=== PATIENT | female | born 1940 | race African-American/Black ===

== ENCOUNTER 2016-10-15 20:50 | Inpatient (IN) ==
[2016-10-15] MEDS ORDERED: SODIUM CHLORIDE 0.9% 500 ML IV STA (20:58)
[2016-10-15] MEDS ORDERED: ALBUTEROL/IPRATROPIUM 3 ML NEB RESP TX STA (20:58)
[2016-10-15] MEDS: ALBUTEROL 2.5 MG/3 ML NEB RESP TX SCH (21:15)
[2016-10-15 21:35] LABS: ABG Base Excess -16.8 MMOL/L (-2.5-2.5); ABG HCO3 11.9 MMOL/L (20-26); ABG Oxygen Saturation 83.2 % (95-100); ABG PCO2 45.3 MM HG (35-48); ABG PO2 66.3 MM HG (80-95); ABG TCO2 12.6 MMOL/L (23-27)
[2016-10-15 21:40] LABS: ABG PH 7.085 (7.35-7.45)
[2016-10-15 21:58] LABS: Basophils % 0.2 % (0.0-0.8); Eosinophils # 0.1 10*3/uL (0.0-0.87); Eosinophils % 1.2 % (0.00-10.9); Lymphocytes # 1.8 10*3/uL (1.4-4.0); Lymphocytes % 35.4 % (21.3-54.2); Mean Corpuscular HGB Conc 29.8 GM/DL (32-36); Mean Corpuscular Hemoglobin 23 PG (27-34); Mean Corpuscular Volume 75.6 FL (87-102); Mean Platelet Volume 13.8 FL (9.6-12.0); Monocytes # 0.3 10*3/uL (0.11-0.8); Monocytes % 6.5 % (1.7-12.7); Neutrophils % 56.7 % (38.7-73.9); Platelet Count 281 T/CUMM (130-400); Red Blood Count 5.69 MC/CUMM (3.8-5.5); Red Cell Distribution Width 14.7 % (9.3-17.3); White Blood Count 5.2 T/CUMM (4-12)
[2016-10-15 21:59] LABS: Hemoglobin 12.8 GM/DL (12.0-16.0)
[2016-10-15 22:06] LABS: INR 1.1; PT Patient Result 11.8 SECS
[2016-10-15] MEDS ORDERED: PIPERACILLIN/TAZOBACTAM 3,375 MG in SODIUM CHLORIDE 0.9% 100 ML IV STA (22:16)
[2016-10-15 22:21] LABS: Albumin 2.9 G/DL (3.4-5.0); Bilirubin,Total 0.5 MG/DL (0.2-1.0); Magnesium 2.9 MG/DL (1.8-2.4); Osmolality,Calculated 332.2 MOS/KG (273-304); Potassium 4.4 MMOL/L (3.5-5.1); Total Protein 7.3 G/DL (6.4-8.3)
[2016-10-15 22:23] LABS: Troponin I Only 0.508 NG/ML (0.00-0.045)
[2016-10-15 22:29] LABS: Burr Cells Few; Microcytosis Slight; Ovalocytes Few; Platelet Estimate Normal; Poikilocytosis Slight
[2016-10-15] MEDS ORDERED: MIDAZOLAM 10 MG/2 ML VIAL IV STA (22:36)
[2016-10-15] MEDS ORDERED: fentaNYL 100 MCG/2 ML VIAL IV STA (22:36)
[2016-10-15] MEDS ORDERED: MIDAZOLAM 10 MG/2 ML VIAL ONE (22:38)
[2016-10-15] MEDS ORDERED: fentaNYL 100 MCG/2 ML VIAL ONE (22:38)
[2016-10-15 22:40] LABS: Apearance,Urine CLOUDY (Clear); Bacteria,Urine Many /HPF (Few); Bilirubin,Urine Negative (Negative); Blood, Urine Moderate mg/dL (Negative); Glucose,Urine (UA) Negative (Negative); Ketones,Urine Negative (Negative); Nitrite,Urine Negative (Negative); Protein,Urine 100 MG/DL; RBC,Urine 1075 /HPF (0-4); Urine Color Amber (Yellow); Urine Specific Gravity 1.013 (1.001-1.035); Urine Urobilinogen < 2.0 EU/DL (0.2-1.0); WBC,Urine 5300 /HPF (0-6)
[2016-10-15] MEDS ORDERED: PIPERACILLIN/TAZOBACTAM 3,375 MG VIAL IV ONE (23:03)
[2016-10-15] MEDS ORDERED: MIDAZOLAM 2 MG/2 ML VIAL IV STA (23:43)
--- NOTE | 2016-10-15 23:59 | Emergency Department Note ---
ISherry Emily, am scribing for, and in the presence of, Channing Kenny MD 21: 07. IEfraín Kevin Lee, MD, personally performed the services described in this documentation, ascribed by Kath Powell in my presence, and it is both accurate and complete . Arrival - Arrival Chief Complaint: Upper Respiratory Stated Complaint: respiratory Mode of Arrival: Stretcher Limitations: Altered Mental Status (demented; non verbal), Physical Limitation Source: EMS - History of Present Illness HPI Narrative: Pt is a 76 y/o female who was brought to ED by EMS from [facility] for further evaluation of mild respiratory on a nonbreather that started earlier today. Pt is non verbal and does not follow commands. PMHx of Alzheimer's, GERD, spinal stenosis, IDDM. EMS states [facility] suctioned out about 200 cc, pt was vomiting around 430pm and given zofran. EMS states her O2 sat has improved immensely since arrival at [facility]. Last documentation found on pt was from 2012 for Full Code provided by family. Onset (ago): hour(s) Consistency: constant Severity: moderate, severe Severity scale (1-10): 8 Quality: fullness Allergies/Adverse Reactions: Allergies Allergy/AdvReac Type Severity Reaction Status Date / Time No Known Allergies Allergy Verified 10/15/16 20:59 Review of System - Review of System ROS unobtainable: due to mental status, due to dementia Medical,Surgical,& Family Hx - Medical History Cardio: History of: Hypertension Neurology: History of: Dementia Endocrine: History of: Diabetes Mellitus (IDDM) - Social History Smoking Status: Never smoker Marital Status: Single Lives With:: [facility] Functional capacity: bed bound Exam Vital Signs: Vital Signs Temperature 98.2 F 10/15/16 20:53 Pulse Rate 143 H 10/15/16 21:35 Respiratory Rate 32 H 10/15/16 21:35 O2 Sat by Pulse Oximetry 88 L 10/15/16 21:35 - General General appearance: in distress (secondary to respiratory distress, mildly) - Head Head exam: Present: atraumatic, normocephalic - Chest Chest inspection: Present: symmetric chest wall rise - Respiratory Respiratory exam: Present: respiratory distress (mild), rhonchi, other ( tachypneic). Absent: normal lung sounds bilaterally (coarse breath sounds) - Cardiovascular Cardiovascular exam: Present: tachycardia, normal heart sounds - Extremities Exam Extremities exam: Absent: pedal edema - Neurological Exam Neurological exam: Present: CN II-XII intact, other (non verbal and does not follow commands). Absent: alert, oriented X3 - Psychiatric Psychiatric exam: Present: flat affect - Skin Skin exam: Present: warm, dry Course Course Narrative: pt not maintaining sats on 15L non rebreather no help with neb treatments. Discussed with family who all wanted everything possible done including place on vent. Decision made to intubate for respiratory distress and failure. Pt did have some post intubation hypotension placed central line as pt had no peripheal access. discussed with hospitalist and findings with family. Procedures - Central Line Placement Right Femoral Time Out Performed: Yes Patient Placed on Monitor/Pulse Ox: Yes Prep: mask, gloves Central Line Prep: Chlorhexidine scrub Central Line Lumen Inserted: triple Post Procedure: sutured in place, good blood return, all ports aspirated, flushed, capped, sterile dressing applied Patient Tolerated Procedure: well, no complications Complications: none - Intubation Time out performed: Yes sedative: Etomidate paralytic: Succinylcholine Laryngoscope: Yandel ET Tube Size: 8 ET Tube Uncuffed: Yes Tube Secured Depth (cm): 22 (cm) Tube Secured Location: other (gums) Tube Placement Confirmation: visualized tube passing through cords, equal breath sounds bilaterally, no breath sounds over epigastrium, confirmation by capnometry, confirmation detector color change Patient Tolerated Procedure: well, no complications Intubation Complications: none Results - Labs CBC & BMP: 10/15/16 21:43 10/15/16 21:43 Lab Results: I have reviewed the patients labs Labs: Laboratory Tests 10/15/16 21:30 ABG pH 7.085 L* ABG pCO2 45.3 ABG pO2 66.3 L ABG HCO3 11.9 L ABG Total CO2 12.6 L ABG O2 Saturation 83.2 L ABG Base Excess -16.8 L Laboratory Tests 10/15/16 21:43 WBC 5.2 RBC 5.69 H Hgb 12.8 MCV 75.6 L MCH 23 L MCHC 29.8 L Plt Count 281 MPV 13.8 H Laboratory Tests 10/15/16 10/15/16 21:43 21:43 INR 1.1 PT Patient/Control Mix 11.8 Sodium 156 H Potassium 4.4 Chloride 119 H Carbon Dioxide 15 L Anion Gap 26.4 H BUN 48 H Creatinine 3.60 H GFR Calculation 13 BUN/Creatinine Ratio 13.00 Glucose 292 H Calculated Osmolality 332.2 H Calcium 9.0 Magnesium 2.9 H Total Bilirubin 0.50 AST 90 H ALT 103 H Alkaline Phosphatase 81 Troponin I 0.508 H Total Protein 7.3 Albumin 2.9 L Globulin 4.4 H Albumin/Globulin Ratio 0.6 L Laboratory Tests 10/15/16 21:43 Platelet Estimate Normal Poikilocytosis Slight Microcytosis Slight Ovalocytes Few Dalton Cells Few Laboratory Tests 10/15/16 21:43 B-Natriuretic Peptide 191 H Laboratory Tests 10/15/16 22:18 Urine Color Betty Urine Appearance Cloudy Urine pH 5.0 Ur Specific Vesper 1.013 Urine Protein 100 Urine Blood Moderate Urine Urobilinogen < 2.0 H Urine Leukocytes Moderate H Urine RBC 1075 Urine WBC 5300 Urine WBC Clumps Many Urine Bacteria Many Urine Yeast (Budding) Moderate - Diagnostic Findings Procedure: Chest x-ray: report reviewed by me (bilateral patchy infiltrates; ET tube in good position) Critical Care Time Critical Care Time: Yes Total Critical Care Time: 28 (minutes; consults with family about BP management) Disposition Clinical Impression: Acute renal failure, Aspiration pneumonitis, Respiratory failure, Hypernatremia , Hypotension, Alzheimer's dementia Case discussed with: patient's family Disposition: Still a Patient Condition: Critical
--- NOTE | 2016-10-16 00:27 | Hospitalist History & Physical ---
Assessment and Plan (1) Acute on chronic renal failure Status: Acute Assessment and plan: - IVF - will monitor Current Visit: Yes (2) Aspiration pneumonia Status: Acute Assessment and plan: - intubated - IV Vancomy and Zosyn - Blood cultures - PRN nebulizer treatments - Consult pulmonology - Will monitor Current Visit: Yes (3) Hypernatremia Status: Acute Assessment and plan: - IVF - will monitor Current Visit: Yes (4) Respiratory failure Status: Acute Assessment and plan: - acute hypoxic respiratory failure - intubated - Pulmonary consulted - will monitor Current Visit: Yes (5) UTI (urinary tract infection) Status: Acute Assessment and plan: - IV Zosyn - Urine culture pending - will monitor Current Visit: Yes (6) Vomiting Status: Acute Assessment and plan: - may be due to UTI - No additional imaging warranted at this time - will monitor Current Visit: Yes History of Present Illness Chief complaint: Vomiting respiratory distress History of present illness: Ms. Wakefield is a 76 year old female care home resident ([facility]) with a history of dementia, hypertension, osteoarthritis, and diabetes that presented to the ER with respiratory distress. Per daughter, she was called by the care home stated the patient's vomiting all day today. She reports that she was told that her mother was given medications for nausea. Later on this evening patient was contacted again and 7 mother was taken to the ER due to respiratory distress and fever. It was felt that she had possibly aspirated. In the ER, patient continued to be in respiratory distress and required intubation. Patient did have a decrease in her blood pressure after intubation. Patient received IV fluid resuscitation. Patient is a full code per family. No other information provided. ER workup showed bilateral infiltrates on chest x-ray (official read pending), hyponatremia, and acute on chronic renal failure. Patient was admitted to hospitalist service for further management. Allergies Allergy/AdvReac Type Severity Reaction Status Date / Time No Known Allergies Allergy Verified 10/15/16 20:59 Medical,Surgical,& Family Hx - Medical History Cardio: History of: Hypertension Neurology: History of: Dementia Endocrine: History of: Diabetes Mellitus (IDDM) - Surgical History Abdominal Surgeries: Surgical HX of: Cholecystectomy Reproductive Surgeries: Surgical HX of;: Hysterectomy - Social History Smoking Status: Never smoker Frequency of Alcohol Use: None Type of Drug Use: None ROS unobtainable: due to endotracheal tube Exam - Constitutional Vitals: Period Temp Pulse Resp BP Sys/Orozco Pulse Ox Last 24 Hr 98.2 F 140-143 31-32 88-88 General appearance: normal weight - Head Head exam: Present: normal inspection, other (eyes appear sunken) - ENT ENT exam: Present: other (dry mucous membranes) - Respiratory Respiratory exam: Present: decreased breath sounds (in bilateral bases but worse on isabelle right), other (coarse breath sounds throughout ) - Cardiovascular Cardiovascular exam: Present: tachycardia - GI/Abdominal GI/Abdominal exam: Present: normal bowel sounds, soft. Absent: distended, hernia - Extremities Exam Extremities exam: Present: edema, other (peripheral pulses palpable but decraesed) - Neurological Exam Neurological exam: Present: other (sedated) - Psychiatric Psychiatric exam: Present: other (sedated) - Skin Skin exam: Present: normal color, dry Results - Labs CBC & BMP: 10/15/16 21:43 10/15/16 21:43 - EKG EKG results: sinus rhythm (sinus tachycardia) - Diagnostic Findings Procedure: Chest x-ray: pending (bilateral infiltrates)
[2016-10-16] MEDS ORDERED: ALBUTEROL 2.5 MG/3 ML NEB RESP TX PRN (01:32)
[2016-10-16] MEDS ORDERED: GLUCAGON 1 MG VIAL IM PRN (01:32)
[2016-10-16] MEDS ORDERED: ONDANSETRON 4 MG/2 ML VIAL IV PRN (01:32)
[2016-10-16] MEDS ORDERED: DEXTROSE 50% 25 GM/50 ML SYRINGE IV PRN (01:32)
[2016-10-16] MEDS ORDERED: LEVALBUTEROL 1.25 MG/3 ML NEB RESP TX PRN (01:32)
[2016-10-16] MEDS ORDERED: SODIUM CHLORIDE 0.9% 1,000 ML IV ONE ×2 (01:58→14:05)
[2016-10-16] MEDS: SODIUM CHLORIDE 0.45% 1,000 ML IV SCH ×3 (02:06→21:55)
[2016-10-16] MEDS: PANTOPRAZOLE 40 MG VIAL IV SCH (02:14)
[2016-10-16] MEDS: PROPOFOL 1,000 MG/100 ML BOTTLE IV SCH (03:05)
[2016-10-16] MEDS: MIDAZOLAM 100 MG in SODIUM CHLORIDE 0.9% 80 ML IV SCH (03:06)
[2016-10-16 03:08] LABS: ABG Base Excess -14.5 MMOL/L (-2.5-2.5); ABG HCO3 12.1 MMOL/L (20-26); ABG Oxygen Saturation 98.5 % (95-100); ABG PCO2 30.9 MM HG (35-48); ABG PO2 173.8 MM HG (80-95); Allen Test Positive; Pt O2 Delivery Device Ventilator
[2016-10-16] MEDS: MORPHINE 2 MG/1 ML SYRINGE IV PRN (03:18)
[2016-10-16 03:44] LABS: ABG HCO3 12.1 MMOL/L (20-26); ABG Oxygen Saturation 98.6 % (95-100); ABG PCO2 29.4 MM HG (35-48); ABG PH 7.233 (7.35-7.45); ABG PO2 164.6 MM HG (80-95); Allen Test Positive; Pt O2 Delivery Device Ventilator
[2016-10-16] MEDS ORDERED: SUCCINYLCHOLINE 200 MG/10 ML VIAL ONE (03:59)
[2016-10-16] MEDS ORDERED: ETOMIDATE 20 MG/10 ML VIAL IV ONE ×2 (03:59→04:06)
[2016-10-16] MEDS ORDERED: VANCOMYCIN INJ 1,000 MG in SODIUM CHLORIDE 0.9% 250 ML IV ONE (04:00)
[2016-10-16] MEDS ORDERED: VANCOMYCIN INJ 1,000 MG in SODIUM CHLORIDE 0.9% 250 ML IV PRN (04:00)
[2016-10-16] MEDS ORDERED: SUCCINYLCHOLINE 200 MG/10 ML VIAL IV ONE (04:08)
[2016-10-16 05:07] LABS: Basophils % 0.2 % (0.0-0.8); Eosinophils % 0.2 % (0.00-10.9); Hematocrit 34.8 VOL% (35.7-47.0); Hemoglobin 10.4 GM/DL (12.0-16.0); Immature Granulocytes % 0.5 %; Immature Granulocytes Absolute 0.02 #; Lymphocytes # 0.7 10*3/uL (1.4-4.0); Lymphocytes % 17.2 % (21.3-54.2); Mean Corpuscular HGB Conc 29.9 GM/DL (32-36); Mean Corpuscular Hemoglobin 23 PG (27-34); Mean Corpuscular Volume 75.3 FL (87-102); Monocytes # 0.4 10*3/uL (0.11-0.8); Monocytes % 8.5 % (1.7-12.7); NRBC # 0.02 10*3/uL; Neutrophils % 73.4 % (38.7-73.9); Platelet Count 198 T/CUMM (130-400); Red Blood Count 4.62 MC/CUMM (3.8-5.5); Red Cell Distribution Width 14.7 % (9.3-17.3); White Blood Count 4.1 T/CUMM (4-12)
[2016-10-16 05:40] LABS: Hypochromasia 1+
[2016-10-16 05:41] LABS: Microcytosis Slight; Ovalocytes Slight
[2016-10-16 05:42] LABS: Platelet Estimate Adequate
[2016-10-16 05:44] LABS: Albumin 2.2 G/DL (3.4-5.0); Bilirubin,Total 0.5 MG/DL (0.2-1.0); Calcium 7.6 MG/DL (8.5-10.1); Potassium 3.7 MMOL/L (3.5-5.1); Total Protein 5.3 G/DL (6.4-8.3)
[2016-10-16] MEDS: INSULIN LISPRO 100 UNIT/ML SUBCUT SCH ×3 (06:21→19:31)
--- NOTE | 2016-10-16 07:26 | XRay Report ---
Single view the chest. Indication: Shortness of breath. Comparison: None. The heart is normal in size. The lung volumes are small. There are bilateral basilar, predominantly alveolar infiltrates. No pneumothorax or pleural effusion. Degenerative changes are noted within the spinal column and left shoulder. Impression: Bilateral basilar infiltrates. PROCEDURE INTERPRETED AT [facility] DEPARTMENT OF RADIOLOGY Final Report Signed by: Dr. Zeenat Thomas
--- NOTE | 2016-10-16 07:26 | Pulmonology Consult Note ---
Assessment and Plan (1) Respiratory failure Status: Acute Assessment and plan: The patient is on the ventilator for respiratory failure and apparently has been vomiting and aspirating. She does have bilateral pneumonia. Current Visit: Yes (2) Alzheimer's dementia Status: Acute Assessment and plan: The patient is in a [facility] with significant dementia. Current Visit: Yes (3) Acute on chronic renal failure Status: Acute Assessment and plan: The patient's creatinine is up to 3.8. Current Visit: Yes (4) Aspiration pneumonia Status: Acute Assessment and plan: Patient looks like she has bilateral basilar pneumonia. Current Visit: Yes (5) UTI (urinary tract infection) Status: Acute Assessment and plan: Patient does have pyuria. Current Visit: Yes (6) Vomiting Status: Acute Assessment and plan: Patient presented with vomiting but is stable at present. She could be dehydrated somewhat. Current Visit: Yes History of Present Illness Chief complaint: Ventilator management History of present illness: Ms. Wakefield is a 76 year old black female that is a resident of a [facility] with significant dementia. She also has hypertension, diabetes, and degenerative arthritis. Apparently the patient had been vomiting all day and she was given medication for nausea. Later she developed respiratory distress and fever and came into the emergency room with bilateral pneumonia. She continued to have distress and had to be intubated. The patient is now on the ventilator in the ICU. She has adequate oxygenation but does have a tachycardia. She has been given fluids and antibiotics. She is awake but does not follow commands. She apparently has significant dementia. She also has chronic renal insufficiency. Allergies Allergy/AdvReac Type Severity Reaction Status Date / Time No Known Allergies Allergy Verified 10/15/16 20:59 ROS unobtainable: due to endotracheal tube (She is unable to give any history at present.) Exam (Pulmonay) H&P - Constitutional Vitals: Period Temp Pulse Resp BP Sys/Orozco Pulse Ox Last 24 Hr 97.2 F-98.2 F 125-143 12-32 69-131/47-91 88-100 General appearance: normal weight, no acute distress (The patient is reasonably comfortable on the ventilator.) - Head Head exam: Present: normal inspection, normocephalic - Eye Eye exam: Present: EOMI. Absent: scleral icterus Pupils: Present: BETHANIE - ENT ENT exam: Present: other (ET tube is in good position.) - Neck Neck exam: Present: normal inspection. Absent: lymphadenopathy, thyromegaly - Respiratory Respiratory exam: Present: rales, rhonchi (The patient has fairly good breath sounds bilaterally). Absent: accessory muscle use - Cardiovascular Cardiovascular exam: Present: regular rate and rhythm, tachycardia. Absent: gallop, systolic murmur - GI/Abdominal GI/Abdominal exam: Present: normal bowel sounds, soft. Absent: distended, organomegaly, tenderness - Extremities Exam Extremities exam: Present: edema (She has slight edema.). Absent: calf tenderness - Neurological Exam Neurological exam: Present: other (She is not really responding but is awake) - Psychiatric Psychiatric exam: Absent: anxious - Skin Skin exam: Present: warm, dry Medical,Surgical,& Family Hx - Medical History Cardio: History of: Hypertension Neurology: History of: Dementia Endocrine: History of: Diabetes Mellitus (IDDM) Renal: History of: Renal Failure Gastrointestinal: History of: GERD Musculoskeletal: Comment Only: Musculoskeletal Problems (spinal stenosis) - Surgical History Abdominal Surgeries: Surgical HX of: Cholecystectomy Reproductive Surgeries: Surgical HX of;: Hysterectomy - Social History Smoking Status: Never smoker Frequency of Alcohol Use: None Type of Drug Use: None Results - Labs CBC & BMP: 10/16/16 03:47 10/16/16 03:47 Labs: PO2 is 164 with a PCO2 of 29 and a pH of 7.23 - Diagnostic Findings Procedure: Chest x-ray: image reviewed by me, report reviewed by me (Chest x- ray does show bibasilar infiltrates.) Quality Measures - VTE Contraindication to Pharmacological VTE Prophylaxis: High Risk of Bleeding
--- NOTE | 2016-10-16 07:28 | XRay Report ---
Portable chest. Indication: Intubated patient. Comparison: Exam from 45 minutes earlier. The heart is normal in size. Worsening bilateral alveolar infiltrates. An endotracheal tube is in place. Its distal tip is 2 cm above the doug. Surgical clips in the right upper quadrant. Impression: Satisfactory endotracheal tube placement. Worsening bilateral infiltrates. PROCEDURE INTERPRETED AT [facility] DEPARTMENT OF RADIOLOGY Final Report Signed by: Dr. Zeenat Thomas
--- NOTE | 2016-10-16 07:29 | XRay Report ---
Portable chest. Comparison: Exam from several hours earlier. Indication: Shortness of breath. Nasogastric tube has been placed and is in satisfactory position. Stable position of the endotracheal tube. Bilateral lower lobe infiltrates, stable. No pneumothorax. No pleural effusion. Impression: Satisfactory tube placement. Stable infiltrates. PROCEDURE INTERPRETED AT [facility] DEPARTMENT OF RADIOLOGY Final Report Signed by: Dr. Zeenat Thomas
--- NOTE | 2016-10-16 07:51 | EKG Report ---
Stationary ECG Study [facility] ER Test Date: 10/15/2016 8:56:08 PM Pat Name: JOSH HOLMAN Department: Room: 129 Gender: F Interactive Developer: : 1940 Requested by: Channing Caba Order Number: [id number] Reading MD: MELISA NICHOLS Intervals [place] Rate: 152 P: 40 KS: 126 QRS: 48 QRSD: 68 T: 76 QT: 285 QTc: 371 Interpretive Statements SINUS TACHYCARDIA MINIMAL VOLTAGE CRITERIA FOR LVH Electronically Signed On 10-17-16 07:03:15 CDT by MELISA NICHOLS [email or web address]
[2016-10-16] MEDS: PIPERACILLIN/TAZOBACTAM 3,375 MG in SODIUM CHLORIDE 0.9% 100 ML IV SCH (12:02)
[2016-10-16] MEDS: ZINC OXIDE 16% PASTE 57 GM TUBE TOP PRN (12:02)
--- NOTE | 2016-10-16 13:58 | Hospitalist Progress Note ---
Assessment and Plan (1) Respiratory failure Status: Acute Assessment and plan: 1)acute resp failure after aspiration- on Vanc and Zosyn day 2, nebs. Dr Bravo has seen her also. On vent day 2. 2)acute on chronic renal failure- on IVF, creatinine increased to 3.8. UOP ok, monitor. Last check here was 2014, creatinine 1.3 at that time. 3)UTI- culture pending. on antibiotics. 4)significant dementia- at baseline. 5)elevated lactic acid- sent this morning- just saw that it is 10. Give IVF bolus (has had 1500 so far, give anohter 1000 mls) recheck lactic acid in a few hours. BP stable with systolics around 100. tachycardic. Meets criteria for sepsis, appears dehydrated. Current Visit: Yes (2) Alzheimer's dementia Status: Acute Current Visit: Yes (3) Acute on chronic renal failure Status: Acute Current Visit: Yes (4) Aspiration pneumonia Status: Acute Current Visit: Yes (5) UTI (urinary tract infection) Status: Acute Current Visit: Yes Hospitalist: Subjective Interval history: Mrs Wakefield is stable on the vent. She is not sedated and will turn her head to voice, cooperate. Does not try to speak. Exam - Constitutional Vitals: Period Temp Pulse Resp BP Sys/Orozco Pulse Ox Last 24 Hr 97.2 F-99.0 F 125-143 12-32 69-131/45-91 88-100 General appearance: normal weight, no acute distress - Eye Eye exam: Present: EOMI. Absent: scleral icterus - Respiratory Respiratory exam: Present: rales, rhonchi - Cardiovascular Cardiovascular exam: Present: regular rate and rhythm - GI/Abdominal GI/Abdominal exam: Present: normal bowel sounds, soft. Absent: tenderness - Extremities Exam Extremities exam: Absent: edema - Neurological Exam Neurological exam: Present: other (severe dementia at baseline. Nurse spoke to by phone who I hope to talk to when he arrives for visit today.) - Skin Skin exam: Present: warm, dry Results - Labs CBC & BMP: 10/16/16 03:47 10/16/16 03:47 Lab Results: I have reviewed the past 24 hour labs Quality Measures - VTE Contraindication to Pharmacological VTE Prophylaxis: High Risk of Bleeding
[2016-10-16] MEDS ORDERED: SODIUM CHLORIDE 0.9% 1,850 ML IV ONE (14:03)
[2016-10-16] MEDS ORDERED: NOREPINEPHRINE 16 MG in SODIUM CHLORIDE 0.9% 234 ML IV SCH (18:30)
[2016-10-17] MEDS: INSULIN LISPRO 100 UNIT/ML SUBCUT SCH ×4 (00:02→17:28)
[2016-10-17] MEDS: PIPERACILLIN/TAZOBACTAM 3,375 MG in SODIUM CHLORIDE 0.9% 100 ML IV SCH ×2 (01:00→11:38)
[2016-10-17] MEDS: PANTOPRAZOLE 40 MG VIAL IV SCH (01:00)
[2016-10-17] MEDS: PROPOFOL 1,000 MG/100 ML BOTTLE IV SCH (01:00)
[2016-10-17] MEDS: MIDAZOLAM 100 MG in SODIUM CHLORIDE 0.9% 80 ML IV SCH (01:01)
[2016-10-17] MEDS: SODIUM CHLORIDE 0.45% 1,000 ML IV SCH ×2 (08:00→18:54)
--- NOTE | 2016-10-17 08:18 | Pulmonology Progress Note ---
Pulmonary - PN: Subj Interval history: Patient is a 76-year-old black lady with dementia and she is in the intermediate. She came in with what was felt to be aspiration pneumonia. She did develop bilateral infiltrates. She has been reasonably comfortable on the ventilator although she still has a tachycardia. She looks like she is reasonably comfortable at present. Her O2 saturations are adequate and her blood pressure stable. She does open her eyes and look around but does not do much to commands. Exam (Progress Note) - Constitutional Vitals: Period Temp Pulse Resp BP Sys/Orozco Pulse Ox Last 24 Hr 97.2 F-100.9 F 119-144 12-34 84-147/46-84 98-100 Exam: General appearance: normal weight, no acute distress (The patient is reasonably comfortable on the ventilator.) - Head Head exam: Present: normal inspection, normocephalic - Eye Eye exam: Present: EOMI. Absent: scleral icterus Pupils: Present: BETHANIE - ENT ENT exam: Present: other (ET tube is in good position.) - Neck Neck exam: Present: normal inspection. Absent: lymphadenopathy, thyromegaly - Respiratory Respiratory exam: Present: She has fairly good breath sounds bilaterally with minimal rhonchi. - Cardiovascular Cardiovascular exam: Present: regular rate and rhythm, tachycardia. Absent: gallop, systolic murmur - GI/Abdominal GI/Abdominal exam: Present: normal bowel sounds, soft. Absent: distended, organomegaly, tenderness - Extremities Exam Extremities exam: Present: She has no leg pain or tenderness at the present time. - Neurological Exam Neurological exam: Present: other (She is not really responding but is awake) - Psychiatric Psychiatric exam: Absent: anxious - Skin Skin exam: Present: warm, dry Results - Labs CBC & BMP: 10/16/16 03:47 10/16/16 03:47 Assessment and Plan (1) Respiratory failure Status: Acute Assessment and plan: The patient is on the ventilator for respiratory failure and apparently has been having vomiting and aspirating. She does have bilateral pneumonia. She is reasonably comfortable on the ventilator. Current Visit: Yes (2) Alzheimer's dementia Status: Acute Assessment and plan: The patient is in a intermediate with significant dementia. Current Visit: Yes (3) Acute on chronic renal failure Status: Acute Assessment and plan: The patient's creatinine is up to 3.8. Current Visit: Yes (4) Aspiration pneumonia Status: Acute Assessment and plan: Patient looks like she has bilateral basilar pneumonia. Nothing is growing on culture yet. Temp is 99.7. Current Visit: Yes (5) UTI (urinary tract infection) Status: Acute Assessment and plan: Patient does have pyuria. Urine cultures negative so far. Current Visit: Yes (6) Vomiting Status: Acute Assessment and plan: Patient presented with vomiting but is stable at present. She could be dehydrated somewhat. She is getting some fluids. Current Visit: Yes
[2016-10-17] MEDS ORDERED: VANCOMYCIN INJ 1,000 MG in SODIUM CHLORIDE 0.9% 250 ML IV ONE (08:30)
[2016-10-17 10:27] LABS: Calcium 6.5 MG/DL (8.5-10.1); Osmolality,Calculated 316.9 MOS/KG (273-304); Potassium 4.5 MMOL/L (3.5-5.1)
[2016-10-17 11:26] LABS: Basophils % 0.3 % (0.0-0.8); Eosinophils % 0.1 % (0.00-10.9); Hematocrit 27.2 VOL% (35.7-47.0); Hemoglobin 8.9 GM/DL (12.0-16.0); Immature Granulocytes % 0.7 %; Immature Granulocytes Absolute 0.09 #; Lymphocytes % 7.5 % (21.3-54.2); Mean Corpuscular HGB Conc 32.7 GM/DL (32-36); Mean Corpuscular Hemoglobin 23 PG (27-34); Mean Corpuscular Volume 69.9 FL (87-102); Monocytes # 0.6 10*3/uL (0.11-0.8); Monocytes % 4.1 % (1.7-12.7); NRBC # 0.02 10*3/uL; Neutrophils # 11.8 10*3/uL (1.4-7.4); Neutrophils % 87.3 % (38.7-73.9); Red Blood Count 3.89 MC/CUMM (3.8-5.5); Red Cell Distribution Width 14.6 % (9.3-17.3); White Blood Count 13.5 T/CUMM (4-12)
[2016-10-17 11:29] LABS: Platelet Count 148 T/CUMM (130-400)
--- NOTE | 2016-10-17 11:42 | Hospitalist Progress Note ---
Assessment and Plan (1) Respiratory failure Status: Acute Assessment and plan: 1)acute resp failure after aspiration- on Vanc and Zosyn day 3, nebs. Dr Bravo has seen her also. On vent day 3. Was able to come down to 60% FIO2 today. 2)acute on chronic renal failure- on IVF, creatinine increased to 3.8. UOP low, monitor. Last check here was 2014, creatinine 1.3 at that time. GIving IVF. address hypernatremia with free water through the NGT. 3)UTI- culture pending. on antibiotics. 4)significant dementia- at baseline. 5)elevated lactic acid- coming down on recheck yesterday. hydrated. off pressors since yesterday morning. Current Visit: Yes (2) Alzheimer's dementia Status: Acute Current Visit: Yes (3) Acute on chronic renal failure Status: Acute Current Visit: Yes (4) Aspiration pneumonia Status: Acute Current Visit: Yes (5) UTI (urinary tract infection) Status: Acute Current Visit: Yes Hospitalist: Subjective Interval history: Ms Wakefield is stable on the vent, does not require sedation. Begin tube feeds with increased free water. Exam - Constitutional Vitals: Period Temp Pulse Resp BP Sys/Orozco Pulse Ox Last 24 Hr 97.2 F-100.9 F 119-144 12-34 84-150/49-84 98-100 General appearance: normal weight, no acute distress - Head Head exam: Present: normocephalic, atraumatic - Eye Eye exam: Present: EOMI. Absent: scleral icterus - Respiratory Respiratory exam: Present: rhonchi. Absent: wheezes - Cardiovascular Cardiovascular exam: Present: regular rate and rhythm - GI/Abdominal GI/Abdominal exam: Present: normal bowel sounds, soft. Absent: tenderness - Extremities Exam Extremities exam: Absent: edema - Neurological Exam Neurological exam: Present: altered (moves her extremities, does not try to speak. She has severe dementia, but baseline not known to me. ) - Skin Skin exam: Present: warm, dry Results - Labs CBC & BMP: 10/17/16 11:15 10/17/16 09:55 Lab Results: I have reviewed the past 24 hour labs Quality Measures - VTE Contraindication to Pharmacological VTE Prophylaxis: High Risk of Bleeding
[2016-10-17 11:55] LABS: Band Neutrophils 10 % (0-10); Lymphocytes 9 % (20-55); Nucleated Red Blood Cells 1 (0-5); Segmented Neutrophils 76 % (50-85); Total Cells Counted 100
[2016-10-17 11:56] LABS: Burr Cells Few; Hypochromasia 1+; Microcytosis 1+; Platelet Estimate Adequate
[2016-10-17] MEDS: GALANTAMINE 4 MG TABLET PO SCH (21:47)
[2016-10-18] MEDS: INSULIN LISPRO 100 UNIT/ML SUBCUT SCH ×4 (01:01→18:39)
[2016-10-18] MEDS: PIPERACILLIN/TAZOBACTAM 3,375 MG in SODIUM CHLORIDE 0.9% 100 ML IV SCH ×2 (01:01→12:10)
[2016-10-18] MEDS: PANTOPRAZOLE 40 MG VIAL IV SCH (01:02)
[2016-10-18 03:19] LABS: Allen Test Positive; Pt O2 Delivery Device Ventilator
[2016-10-18 03:20] LABS: ABG Base Excess -13.3 MMOL/L (-2.5-2.5); ABG Oxygen Saturation 98.6 % (95-100); ABG PH 7.281 (7.35-7.45); ABG TCO2 11.5 MMOL/L (23-27)
[2016-10-18 04:46] LABS: Basophils % 0.3 % (0.0-0.8); Eosinophils % 0.2 % (0.00-10.9); Hematocrit 25.3 VOL% (35.7-47.0); Hemoglobin 8.4 GM/DL (12.0-16.0); Immature Granulocytes % 0.4 %; Immature Granulocytes Absolute 0.04 #; Lymphocytes # 0.7 10*3/uL (1.4-4.0); Lymphocytes % 6.7 % (21.3-54.2); Mean Corpuscular HGB Conc 33.2 GM/DL (32-36); Mean Corpuscular Hemoglobin 23 PG (27-34); Mean Corpuscular Volume 68.8 FL (87-102); Monocytes # 0.3 10*3/uL (0.11-0.8); Monocytes % 2.6 % (1.7-12.7); NRBC # 0.03 10*3/uL; Neutrophils # 9.3 10*3/uL (1.4-7.4); Neutrophils % 89.8 % (38.7-73.9); Platelet Count 140 T/CUMM (130-400); Red Blood Count 3.68 MC/CUMM (3.8-5.5); Red Cell Distribution Width 14.3 % (9.3-17.3); White Blood Count 10.3 T/CUMM (4-12)
[2016-10-18] MEDS: SODIUM CHLORIDE 0.45% 1,000 ML IV SCH ×2 (05:10→15:00)
[2016-10-18 05:25] LABS: Burr Cells 1+; Calcium 6.4 MG/DL (8.5-10.1); Hypochromasia 1+; Magnesium 1.9 MG/DL (1.8-2.4); Osmolality,Calculated 311.8 MOS/KG (273-304); Ovalocytes Slight; Platelet Estimate Normal; Potassium 4.2 MMOL/L (3.5-5.1)
[2016-10-18 05:26] LABS: Giant Platelets Few; Microcytosis 1+
[2016-10-18 05:52] LABS: Phosphorous 5.4 MG/DL (2.5-4.9); Prealbumin 7.8 MG/DL (20-40)
--- NOTE | 2016-10-18 07:56 | Pulmonology Progress Note ---
Pulmonary - PN: Subj Interval history: Patient is a 76-year-old black lady with dementia and she is in the longterm. She came in with what was felt to be aspiration pneumonia. She did develop bilateral infiltrates. She has been reasonably comfortable on the ventilator although she still has a tachycardia. She still has bilateral infiltrates present. Her oxygenation is fair. Her urine output is on the low side. Her creatinine is up to 6. Exam (Progress Note) - Constitutional Vitals: Period Temp Pulse Resp BP Sys/Orozco Pulse Ox Last 24 Hr 98.4 F-98.8 F 60-123 12-33 107-187/54-106 95-100 Exam: General appearance: normal weight, no acute distress (The patient is reasonably comfortable on the ventilator.) - Head Head exam: Present: normal inspection, normocephalic - Eye Eye exam: Present: EOMI. Absent: scleral icterus Pupils: Present: BETHANIE - ENT ENT exam: Present: other (ET tube is in good position.) - Neck Neck exam: Present: normal inspection. Absent: lymphadenopathy, thyromegaly - Respiratory Respiratory exam: Present: She has fairly good breath sounds bilaterally but she does have some rales or rhonchi present. - Cardiovascular Cardiovascular exam: Present: regular rate and rhythm, tachycardia. Absent: gallop, systolic murmur - GI/Abdominal GI/Abdominal exam: Present: normal bowel sounds, soft. Absent: distended, organomegaly, tenderness - Extremities Exam Extremities exam: Present: She has no leg pain or tenderness at the present time. - Neurological Exam Neurological exam: Present: other (She is not really responding but is awake) - Psychiatric Psychiatric exam: Absent: anxious - Skin Skin exam: Present: warm, dry Results - Labs CBC & BMP: 10/18/16 03:51 10/18/16 03:51 Labs: Her PO2 is 114 on 60 percent with a PCO2 of 26. - Diagnostic Findings Procedure: Chest x-ray: image reviewed by me, report reviewed by me (Chest x- ray still shows considerable infiltrates bilaterally.) Assessment and Plan (1) Respiratory failure Status: Acute Assessment and plan: The patient is on the ventilator for respiratory failure and apparently has been having vomiting and aspirating. She does have bilateral pneumonia. She is reasonably comfortable on the ventilator. She still has considerable infiltrates and will proceed with a therapeutic bronchoscopy. We will try to get some cultures. Current Visit: Yes (2) Alzheimer's dementia Status: Acute Assessment and plan: The patient is in a longterm with significant dementia. Current Visit: Yes (3) Acute on chronic renal failure Status: Acute Assessment and plan: The patient's creatinine is up to 6.0. Current Visit: Yes (4) Aspiration pneumonia Status: Acute Assessment and plan: Patient looks like she has bilateral basilar pneumonia. She still has bilateral infiltrates although she is not having much fever. We will proceed with a therapeutic bronchoscopy. Current Visit: Yes (5) UTI (urinary tract infection) Status: Acute Assessment and plan: Patient does have pyuria. She has gram-negative rods on her urine culture. Current Visit: Yes (6) Vomiting Status: Acute Assessment and plan: Patient presented with vomiting but is stable at present. She could be dehydrated somewhat. She is getting some fluids. Current Visit: Yes
--- NOTE | 2016-10-18 08:15 | XRay Report ---
History is ventilator management Comparison 10/16/2016 The heart is mildly enlarged. ET tube tip is just above the doug towards the right There is slight worsening of the diffuse bilateral moderate the pulmonary opacities. Tiny effusion suspected. There may be some minimally more focal infiltrate or atelectasis with air bronchograms in the retrocardiac left base. Impression: 1. Slight worsening of diffuse bilateral infiltrates and/or edema 2. ET tube tip is just above the doug. This could be retracted approximately 2 cm. PROCEDURE INTERPRETED AT [facility] DEPARTMENT OF RADIOLOGY Final Report Signed by: Dr. Tina Thomas
[2016-10-18] MEDS ORDERED: VANCOMYCIN INJ 1,000 MG in SODIUM CHLORIDE 0.9% 250 ML IV ONE (08:30)
[2016-10-18] MEDS ORDERED: CITALOPRAM 20 MG TABLET PO SCH (09:00)
[2016-10-18] MEDS ORDERED: LISINOPRIL 20 MG TABLET PO SCH (09:00)
[2016-10-18] MEDS: PROPOFOL 1,000 MG/100 ML BOTTLE IV SCH ×2 (09:05→20:19)
[2016-10-18] MEDS ORDERED: PROPOFOL 1,000 MG/100 ML BOTTLE IV ONE (09:08)
--- NOTE | 2016-10-18 09:22 | Operative Note ---
Date of procedure: 10/18/16 Pre-op diagnosis: Respiratory failure with bilateral infiltrates . Post-op diagnosis: other (Mild bronchitis with possible pulmonary edema) Procedure: The patient is a 76-year-old black lady that likely aspirated and is on the ventilator. She has diffuse infiltrates. A therapeutic bronchoscopy will be done. She is sedated on the ventilator in the ICU. Procedure: The fiberoptic bronchoscope was passed to the ET tube into the airways. The airways were identified and specimens obtained. Findings: The ET tube is in good position in the trachea. The main bronchi are open. There is some mild frothy blood-tinged secretions throughout the airways that were washed and cleared. Washings were sent for culture. There is minimal bronchitis present. There are no endobronchial lesions seen. The right upper lobe, right middle lobe, right lower lobe are all open. The left upper lobe, lingula, and left lower lobe are all open. Once the airways were clear the procedure was stopped. She tolerated the procedure well without problems. Impression: Diffuse infiltrates which are likely due to pulmonary edema with some aspiration pneumonia. Plan: We will continue ventilatory support Anesthesia: conscious sedation Surgeon / Physician: Néstor Bravo Estimated blood loss: none Specimens: other (Washings were sent for culture) Condition: critical Disposition: ICU Results - Labs CBC & BMP: 10/18/16 03:51 10/18/16 03:51 Discharge Plan - Discharge Medications No Action cloNIDine HCl [Clonidine HCl] 0.2 mg PO TID Potassium Chloride [Klor-Con M20] 20 meq PO DAILY Multivitamin [Chewable-Damian] 1 capsule PO DAILY Lisinopril [Prinivil] 20 mg PO DAILY Insulin Regular [HumuLIN R] See Protocol SUBCUT BID Insulin Glargine [Lantus] 38 unit SUBCUT DAILY Ferrous Sulfate Liquid [Feosol Liquid] 220 mg PO TID Citalopram Hydrobromide [Celexa] 20 mg PO DAILY Aspirin Chew Tab [Aspirin Chew Tab] 81 mg PO DAILY metFORMIN [Glucophage] 500 mg PO BID Meloxicam [Mobic] 7.5 mg PO DAILY Galantamine HBr [Galantamine Soln] 12 mg PO BID - Follow Up or Referral - Forms/Instructions
[2016-10-18] MEDS ORDERED: FUROSEMIDE 40 MG/4 ML VIAL IV ONE (09:23)
[2016-10-18] MEDS: GALANTAMINE 4 MG TABLET PO SCH (09:43)
[2016-10-18] MEDS: MULTIVITAMIN (CENTRUM) TABLET PO SCH (09:43)
--- NOTE | 2016-10-18 11:50 | Hospitalist Progress Note ---
Assessment and Plan (1) Respiratory failure Status: Acute Assessment and plan: 1)acute resp failure after aspiration while vomiting and now also with pulmonary edema- on Vanc and Zosyn day 4, nebs. Dr Bravo did bronch this morining. On vent day 4. She is doing some CPAP trials but was having trouble with it this morning. 2)acute on chronic renal failure- on IVF, creatinine increased to 6.0. UOP low, monitor. Last check here was 2014, creatinine 1.3 at that time. GIving IVF. addressing hypernatremia with free water through the NGT and sodium down to 144 this morning. check renal US consult nephrology 3)UTI- GNR growing. on zosyn and vanc. 4)significant dementia- at baseline. 5)shock- resolved, BP stable to high now. 6)anemia- stable, no sign of bleeding Current Visit: Yes (2) Alzheimer's dementia Status: Acute Current Visit: Yes (3) Acute on chronic renal failure Status: Acute Current Visit: Yes (4) Aspiration pneumonia Status: Acute Current Visit: Yes (5) UTI (urinary tract infection) Status: Acute Current Visit: Yes Hospitalist: Subjective Interval history: Mrs Bush is stable on vent but had just become diaphoretic and tachycardic while doing CPAP when I arrived. She had bronch shortly after that and I have reviewed Dr Bravo's report of his findings. Exam - Constitutional Vitals: Period Temp Pulse Resp BP Sys/Orozco Pulse Ox Last 24 Hr 98.7 F-98.8 F 60-143 12-39 107-187/53-106 92-100 General appearance: normal weight, no acute distress - Eye Eye exam: Present: EOMI. Absent: scleral icterus - Respiratory Respiratory exam: Present: rales, rhonchi - Cardiovascular Cardiovascular exam: Present: regular rate and rhythm, tachycardia - GI/Abdominal GI/Abdominal exam: Present: normal bowel sounds, soft. Absent: tenderness - Extremities Exam Extremities exam: Absent: edema Results - Labs CBC & BMP: 10/18/16 03:51 10/18/16 03:51 Lab Results: I have reviewed the past 24 hour labs Quality Measures - VTE Contraindication to Pharmacological VTE Prophylaxis: High Risk of Bleeding
--- NOTE | 2016-10-18 13:55 | Ultrasound Report ---
History is renal failure Right kidney is 9.7 cm in length Left kidney is 11.2 cm in length Cortical echogenicity is at the upper range of normal bilaterally. There is relative diffuse cortical thinning in the right kidney compared to the left No hydronephrosis seen bilaterally There is arterial flow to both kidneys Impression: 1. Mild diffusely decreased size and relative cortical thinning in the right kidney could be developmental or related to atrophy from scarring or renal artery stenosis on the right 2. Borderline to slightly increased renal cortical echogenicity raising question of medical renal disease PROCEDURE INTERPRETED AT [facility] DEPARTMENT OF RADIOLOGY Final Report Signed by: Dr. Tina Thomas
--- NOTE | 2016-10-18 14:17 | Nephrology Consult Note ---
History of Present Illness Chief complaint: Increased BUN and creatinine History of present illness: Ms. Wakefield is a 76 year old female who resides at a long-term and was brought to the emergency room for respiratory distress about 2 days ago. The patient apparently had been vomiting all day and later in the day developed respiratory problems and was brought to the emergency room. The patient is currently being treated for pneumonia with IV antibiotics she also had a urinalysis that revealed changes consistent with a urinary tract infection. We are asked see the patient for her increased BUN and creatinine on presentation her creatinine was around 3 mg/dL it is now increased around 6 mg/dL review of her previous creatinine a few years ago reveals it to have been around 1.4 mg/dL. the patient has a history of diabetes and hypertension. Patient was also noted to have a increased sodium level of around 156 on presentation. The patient has baseline dementia she apparently does eat at the long-term but it sounds like she is probably dependent on others to feed her. The patient also had a hematocrit of around 45% with IV fluids over the past few days her hematocrit is dropped around 25%. Her sodium has improved to a normal range at this time. She continues on tube feeds as well as IV fluids at 100 cc an hour. The patient apparently received a dose of Lasix this morning but did not have any major change in her urine output with this. Patient's urine output over the past couple of days has been a total of about 600 cc. Her renal ultrasound shows some atrophy kidneys and changes consistent with medical renal disease. There was no evidence of any hydronephrosis. The patient's blood pressure has fluctuated quite wildly between a systolic of around 105 up to around 180 at times. Patient has not received any contrast agents since her admission. She is not on an JUAN ANTONIO inhibitor or angiotensin receptor marilu or any nonsteroidal anti-inflammatory medications. Patient is getting vancomycin this was started a few days ago. Review of systems unable be obtained due to patient's medical condition PE: General: in no acute distress Eyes: Pupils are round and reactive, conjunctivae are clear ENT: Nose is clear, O/P is benign Neck: Supple, no thyromegaly Lymphatics: No cervical, supraclavicular or axillary adenopathy Heart: Regular rate and rhythm, no edema Lungs: Clear to auscultation anteriorly, chest expansion symmetric Abdomen: Soft, normoactive bowel sounds, no hepatomegaly Musculoskeletal: No joint erythema or effusions or joint asymmetry Skin: Normal turgor, normal hydration, no rash Neuro/Psych: Alert and cooperative with fair insight Home Medications Medication Instructions Recorded Confirmed Type Aspirin Chew Tab [Aspirin Chew Tab] 81 mg PO DAILY 10/16/16 10/16/16 History Citalopram Hydrobromide [Celexa] 20 mg PO DAILY 10/16/16 10/16/16 History Ferrous Sulfate Liquid [Feosol 220 mg PO TID 10/16/16 10/16/16 History Liquid] Galantamine HBr [Galantamine Soln] 12 mg PO BID 10/16/16 10/16/16 History Insulin Glargine [Lantus] 38 unit SUBCUT DAILY 10/16/16 10/16/16 History Insulin Regular [HumuLIN R] See Protocol SUBCUT BID 10/16/16 10/16/16 History Lisinopril [Prinivil] 20 mg PO DAILY 10/16/16 10/16/16 History Meloxicam [Mobic] 7.5 mg PO DAILY 10/16/16 10/16/16 History Multivitamin [Chewable-Damian] 1 capsule PO DAILY 10/16/16 10/16/16 History Potassium Chloride [Klor-Con M20] 20 meq PO DAILY 10/16/16 10/16/16 History cloNIDine HCl [Clonidine HCl] 0.2 mg PO TID 10/16/16 10/16/16 History metFORMIN [Glucophage] 500 mg PO BID 10/16/16 10/16/16 History Allergies Allergy/AdvReac Type Severity Reaction Status Date / Time No Known Allergies Allergy Verified 10/15/16 20:59 Medical,Surgical,& Family Hx - Medical History Cardio: History of: Hypertension Neurology: History of: Dementia Endocrine: History of: Diabetes Mellitus (IDDM) Renal: History of: Renal Failure Gastrointestinal: History of: GERD Musculoskeletal: Comment Only: Musculoskeletal Problems (spinal stenosis) - Surgical History Abdominal Surgeries: Surgical HX of: Cholecystectomy Reproductive Surgeries: Surgical HX of;: Hysterectomy - Family History Additional Family History: Unable to be obtained due to patient's medical condition - Social History Smoking Status: Never smoker Frequency of Alcohol Use: None Type of Drug Use: None Exam - Vital Signs Vital signs: Period Temp Pulse Resp BP Sys/Orozco Pulse Ox Last 24 Hr 98.2 F-98.8 F 60-143 12-39 102-187/53-106 92-100 Results - Labs CBC & BMP: 10/18/16 03:51 10/18/16 03:51 Assessment and Plan (1) Acute renal failure Status: Acute Assessment and plan: This patient's creatinine has been increasing since she was here she presented with a creatinine of around 3 mg/dL. I suspect her acute renal failure is related to her acute illness and a probable acute tubular necrosis type of injury. At this point I am going to try and decrease her fluids as I feel she has been adequately volume resuscitated. We will continue to monitor for improvement. Current Visit: Yes (2) Hypertension Status: Acute Assessment and plan: Continue present medical regimen Current Visit: Yes (3) Anemia Status: Acute Current Visit: Yes (4) Dementia Status: Acute Current Visit: Yes (5) Aspiration pneumonitis Status: Acute Assessment and plan: Presently patient is getting Zosyn and vancomycin, in light of her renal failure it may be good if we could switch her vancomycin out for clindamycin perhaps. Current Visit: Yes (6) Respiratory failure Status: Acute Current Visit: Yes (7) Hypernatremia Status: Acute Current Visit: Yes (8) UTI (urinary tract infection) Status: Acute Current Visit: Yes (9) Vomiting Status: Acute Current Visit: Yes (10) Metabolic acidosis Status: Acute Assessment and plan: I will add some sodium bicarbonate to her IV fluids. Current Visit: Yes
[2016-10-18] MEDS: SODIUM BICARB INJ 150 MEQ in STERILE WATER INJ 850 ML IV SCH (15:03)
[2016-10-18] MEDS: ZINC OXIDE 16% PASTE 57 GM TUBE TOP PRN (15:25)
[2016-10-19] MEDS: INSULIN LISPRO 100 UNIT/ML SUBCUT SCH ×5 (00:48→23:41)
[2016-10-19] MEDS: PIPERACILLIN/TAZOBACTAM 3,375 MG in SODIUM CHLORIDE 0.9% 100 ML IV SCH ×3 (00:48→23:42)
[2016-10-19 03:04] LABS: ABG Base Excess -10.4 MMOL/L (-2.5-2.5); ABG Oxygen Saturation 97.9 % (95-100); ABG PCO2 22.5 MM HG (35-48); ABG PH 7.387 (7.35-7.45); ABG PO2 93.2 MM HG (80-95); ABG TCO2 12.7 MMOL/L (23-27); Allen Test Positive; Pt O2 Delivery Device Ventilator
[2016-10-19] MEDS: PANTOPRAZOLE 40 MG VIAL IV SCH (03:12)
[2016-10-19 04:57] LABS: Basophils % 0.2 % (0.0-0.8); Eosinophils # 0.1 10*3/uL (0.0-0.87); Eosinophils % 1.4 % (0.00-10.9); Hematocrit 23.3 VOL% (35.7-47.0); Hemoglobin 7.9 GM/DL (12.0-16.0); Immature Granulocytes % 1.1 %; Immature Granulocytes Absolute 0.09 #; Lymphocytes # 0.6 10*3/uL (1.4-4.0); Lymphocytes % 7.4 % (21.3-54.2); Mean Corpuscular HGB Conc 33.9 GM/DL (32-36); Mean Corpuscular Hemoglobin 22 PG (27-34); Monocytes # 0.4 10*3/uL (0.11-0.8); Monocytes % 4.9 % (1.7-12.7); Neutrophils # 6.9 10*3/uL (1.4-7.4); Red Blood Count 3.53 MC/CUMM (3.8-5.5); Red Cell Distribution Width 13.5 % (9.3-17.3); White Blood Count 8.1 T/CUMM (4-12)
[2016-10-19] MEDS: PROPOFOL 1,000 MG/100 ML BOTTLE IV SCH ×4 (05:04→20:44)
[2016-10-19 05:06] LABS: Platelet Count 89 T/CUMM (130-400)
[2016-10-19 05:26] LABS: Band Neutrophils 3 % (0-10); Lymphocytes 12 % (20-55); Metamyelocytes 1 %; Nucleated Red Blood Cells 2 (0-5); Segmented Neutrophils 82 % (50-85); Total Cells Counted 100
[2016-10-19 05:27] LABS: Hypochromasia 1+; Microcytosis 1+; Platelet Estimate Decreased
[2016-10-19 05:29] LABS: Calcium 6.7 MG/DL (8.5-10.1); Potassium 3.7 MMOL/L (3.5-5.1)
--- NOTE | 2016-10-19 07:21 | Pulmonology Progress Note ---
Pulmonary - PN: Subj Interval history: This 76-year-old lady has a history of dementia and lives in a halfway. She came in after an episode sounds like aspiration. Her x-ray has shown pulmonary edema and she does have congestive heart failure. She has developed acute renal failure with creatinine up to 6.6. Renal is seeing her. She is getting bicarb. Her chest x-ray today looks wetter. ABGs are acceptable although she does have a metabolic acidosis. Certainly not ready for any weaning at this point. Her prognosis appears poor. Note that she is a DO NOT RESUSCITATE at this point. Exam (Progress Note) - Constitutional Vitals: Period Temp Pulse Resp BP Sys/Orozco Pulse Ox Last 24 Hr 97.8 F-98.7 F 79-143 20-102 102-183/50-99 92-99 Exam: Patient is not responsive. Vital signs normal. Pupils react to light. Orotracheal tube in place. Neck supple no bruits. Chest reveals rales bilaterally. Heart normal rate rhythm no murmurs. Abdomen soft no masses. Extremities no clubbing or cyanosis she has 1+ edema. Results - Labs CBC & BMP: 10/19/16 03:56 10/19/16 03:56 Lab Results: I have reviewed the past 24 hour labs - Diagnostic Findings Procedure: Chest x-ray: image reviewed by me (Fluffy pulmonary edema bilaterally. ET tube good position) Assessment and Plan (1) Congestive heart failure Status: Acute Assessment and plan: Chest x-ray shows pulmonary edema. With worsening renal function difficult to diurese her. Prognosis appears poor. Need to check echo Current Visit: Yes (2) Acute renal failure Status: Acute Assessment and plan: Creatinine up to 6.6. Worsening renal failure. Metabolic acidosis. Renal is addressing. Current Visit: Yes (3) Aspiration pneumonitis Status: Acute Assessment and plan: On empiric antibiotics. X-ray looks more like pulmonary edema from congestive failure. Current Visit: Yes (4) Dementia Status: Acute Assessment and plan: History of underlying dementia. Impossible to evaluate the patient on ventilator. Current Visit: Yes
--- NOTE | 2016-10-19 08:06 | XRay Report ---
History is ventilator management respiratory distress Comparison 10/18/2016 ET tube tip is at T5. Mediastinal contours grossly unchanged There has been interval worsening of extensive bilateral pulmonary opacities and suspected small effusions. Impression: Interval worsening of extensive bilateral pulmonary opacities PROCEDURE INTERPRETED AT [facility] DEPARTMENT OF RADIOLOGY Final Report Signed by: Dr. Tina Thomas
[2016-10-19] MEDS ORDERED: SODIUM CHLORIDE 0.9% 250 ML IV PRN (08:47)
[2016-10-19] MEDS: MULTIVITAMIN (CENTRUM) TABLET PO SCH (09:27)
[2016-10-19] MEDS: SODIUM BICARB INJ 150 MEQ in STERILE WATER INJ 850 ML IV SCH (10:59)
--- NOTE | 2016-10-19 12:02 | Hospitalist Progress Note ---
Assessment and Plan (1) Respiratory failure Status: Acute Assessment and plan: 1)acute resp failure after aspiration while vomiting and now also with pulmonary edema- on Vanc and Zosyn day 4, nebs. Dr Bravo did bronch this morining. On vent day 4. She is doing some CPAP trials but was having trouble with it this morning. 2)acute on chronic renal failure- on IVF, creatinine increased to 6.6. UOP increasing, monitor. Last check here was 2014, creatinine 1.3 at that time. Giving IVF. addressing hypernatremia with free water through the NGT and sodium down to 144 this morning. check renal US showed no hydro, with medical renal disease. Dr Sales has seen her and I appreciate his help. 3)UTI due to ESBL E coli- on zosyn and vanc. If cultures from bronch do not grow MRSA stop vanc. another dose will not be due til possibly Saturday morning. random level ordered for that time by pharmacy. 4)significant dementia- at baseline. 5)metabolic acidosis from renal failure- AG increasing. 6)anemia- hgb down again this morning, suspect dilution, no sign of bleeding. transfuse this morning with 1U PRBC. Current Visit: Yes (2) Alzheimer's dementia Status: Acute Current Visit: Yes (3) Acute on chronic renal failure Status: Acute Current Visit: Yes (4) Aspiration pneumonia Status: Acute Current Visit: Yes (5) UTI (urinary tract infection) Status: Acute Current Visit: Yes Hospitalist: Subjective Interval history: Mrs Wakefield is stable on vent but breathing quickly intermittently. She has not done well with CPAP. Exam - Constitutional Vitals: Period Temp Pulse Resp BP Sys/Orozco Pulse Ox Last 24 Hr 97.0 F-98.7 F 79-116 20-102 106-183/50-78 92-100 General appearance: normal weight, no acute distress - Eye Eye exam: Present: EOMI. Absent: scleral icterus - Respiratory Respiratory exam: Present: rales, rhonchi, other (focal area of noise like pleural rub at LUSB) - Cardiovascular Cardiovascular exam: Present: regular rate and rhythm - GI/Abdominal GI/Abdominal exam: Present: normal bowel sounds, soft. Absent: tenderness - Extremities Exam Extremities exam: Present: edema (1+ dependent edema) - Neurological Exam Neurological exam: Present: altered (sedated) - Skin Skin exam: Present: warm, dry Results - Labs CBC & BMP: 10/19/16 03:56 10/19/16 03:56 Lab Results: I have reviewed the past 24 hour labs Quality Measures - VTE Contraindication to Pharmacological VTE Prophylaxis: High Risk of Bleeding
--- NOTE | 2016-10-19 12:26 | Nephrology Progress Note ---
Nephrology - PN: Subj Interval history: Patient remains intubated and sedate Physical exam general the patient is chronically ill-appearing, heart is regular rate and rhythm, she has trace pretibial edema, lungs reveal crackles at the left upper lung field anteriorly, abdomen is soft with positive bowel sounds Assessment/plan 1. Acute renal failure-this patient's creatinine is increased to 6.6 mg/dL from 6 mg/dL yesterday, I believe she has an ATN injury related to her acute illness we will continue supportive care. The family has apparently stated they do not want to administer dialysis to this patient should her kidneys continued to decline. 2. Alzheimer's dementia 3. Aspiration pneumonia-continue antibiotics 4. Urinary tract infection-continue antibiotics, this patient presented with foul-smelling urine and nausea and vomiting which led to aspiration. 5. Metabolic acidosis we will continue bicarb replacement Exam (PN)-Nephrology - Vital Signs Vital signs: Period Temp Pulse Resp BP Sys/Orozco Pulse Ox Last 24 Hr 97.0 F-98.7 F 79-116 20-102 106-183/50-78 92-100 - Lab 10/19/16 03:56 10/19/16 03:56 Most recent lab results ABG pH 7.387 (7.35-7.45) 10/19/16 03:30 ABG pCO2 22.5 MM HG (35-48) L 10/19/16 03:30 ABG pO2 93.2 MM HG (80-95) 10/19/16 03:30 ABG HCO3 16.0 MMOL/L (20-26) L 10/19/16 03:30 ABG O2 Saturation 97.9 % (95-100) 10/19/16 03:30 Calcium 6.7 MG/DL (8.5-10.1) L 10/19/16 03:56 Phosphorus 5.4 MG/DL (2.5-4.9) H 10/18/16 03:51 Magnesium 1.9 MG/DL (1.8-2.4) 10/18/16 03:51 Assessment and Plan (1) Acute renal failure Status: Acute Assessment and plan: This patient's creatinine has been increasing since she was here she presented with a creatinine of around 3 mg/dL. I suspect her acute renal failure is related to her acute illness and a probable acute tubular necrosis type of injury. At this point I am going to try and decrease her fluids as I feel she has been adequately volume resuscitated. We will continue to monitor for improvement. Current Visit: Yes (2) Hypertension Status: Acute Assessment and plan: Continue present medical regimen Current Visit: Yes (3) Anemia Status: Acute Current Visit: Yes (4) Dementia Status: Acute Current Visit: Yes (5) Aspiration pneumonitis Status: Acute Assessment and plan: Presently patient is getting Zosyn and vancomycin, in light of her renal failure it may be good if we could switch her vancomycin out for clindamycin perhaps. Current Visit: Yes (6) Respiratory failure Status: Acute Current Visit: Yes (7) Hypernatremia Status: Acute Current Visit: Yes (8) UTI (urinary tract infection) Status: Acute Current Visit: Yes (9) Vomiting Status: Acute Current Visit: Yes (10) Metabolic acidosis Status: Acute Assessment and plan: I will add some sodium bicarbonate to her IV fluids. Current Visit: Yes
[2016-10-19] MEDS: ZINC OXIDE 16% PASTE 57 GM TUBE TOP PRN (13:47)
[2016-10-20] MEDS: PANTOPRAZOLE 40 MG VIAL IV SCH (03:14)
[2016-10-20 03:22] LABS: Allen Test Positive; Pt O2 Delivery Device Ventilator
[2016-10-20 03:23] LABS: ABG Base Excess -5.1 MMOL/L (-2.5-2.5); ABG HCO3 20.1 MMOL/L (20-26); ABG Oxygen Saturation 96.1 % (95-100); ABG PCO2 25.6 MM HG (35-48); ABG PH 7.451 (7.35-7.45); ABG PO2 75.5 MM HG (80-95); ABG TCO2 16.3 MMOL/L (23-27)
[2016-10-20] MEDS: PROPOFOL 1,000 MG/100 ML BOTTLE IV SCH ×4 (03:59→23:40)
[2016-10-20 04:08] LABS: Basophils % 0.1 % (0.0-0.8); Eosinophils # 0.3 10*3/uL (0.0-0.87); Eosinophils % 3.8 % (0.00-10.9); Hematocrit 26.2 VOL% (35.7-47.0); Hemoglobin 9.3 GM/DL (12.0-16.0); Immature Granulocytes % 1.1 %; Immature Granulocytes Absolute 0.08 #; Lymphocytes # 0.8 10*3/uL (1.4-4.0); Lymphocytes % 11.1 % (21.3-54.2); Mean Corpuscular HGB Conc 35.5 GM/DL (32-36); Mean Corpuscular Hemoglobin 23 PG (27-34); Mean Corpuscular Volume 65.3 FL (87-102); Monocytes # 0.6 10*3/uL (0.11-0.8); Monocytes % 7.4 % (1.7-12.7); NRBC # 0.04 10*3/uL; Neutrophils # 5.7 10*3/uL (1.4-7.4); Neutrophils % 76.5 % (38.7-73.9); Red Blood Count 4.01 MC/CUMM (3.8-5.5); Red Cell Distribution Width 14.6 % (9.3-17.3); White Blood Count 7.4 T/CUMM (4-12)
[2016-10-20 04:33] LABS: Calcium 6.7 MG/DL (8.5-10.1); Osmolality,Calculated 312.1 MOS/KG (273-304)
[2016-10-20 04:35] LABS: Platelet Count 120 T/CUMM (130-400)
[2016-10-20 05:02] LABS: Anisocytosis 2+; Band Neutrophils 5 % (0-10); Eosinophils 4 % (0-10); Hypochromasia 1+; Lymphocytes 12 % (20-55); Microcytosis 2+; Platelet Estimate Decreased; Segmented Neutrophils 69 % (50-85); Total Cells Counted 100
[2016-10-20] MEDS: INSULIN LISPRO 100 UNIT/ML SUBCUT SCH ×3 (06:32→17:51)
--- NOTE | 2016-10-20 07:43 | XRay Report ---
Exam: XR chest 1V portable Date: 10/20/2016 4:00 AM Indication: Follow-up ventilator respiratory failure Comparison: None Technical: 10/19/2016 Findings: Endotracheal tube nasogastric tube external cardiac leads are present. Low volume effusions and shunt vascularity and alveolar edema are present. No pneumothorax. Bony structures are unremarkable. Impression: 1. No significant interval change with stable appearance of life support tubing 2. Component of underlying ARDS and/or pulmonary edema unchanged from prior exam. Underlying nodular mass densities cannot be totally excluded with coalescing infiltrates suspected bilaterally PROCEDURE INTERPRETED AT [facility] DEPARTMENT OF RADIOLOGY Final Report Signed by: Dr. Adrian Jones
--- NOTE | 2016-10-20 07:46 | Hospitalist Progress Note ---
Assessment and Plan - Time spent with patient Time spent with patient: Less than 30 minutes (1) Respiratory failure Status: Acute Assessment and plan: Patient has acute respiratory failure secondary to aspiration as well as possible pulmonary edema secondary to congestive heart failure. She has been managed by the computer network specialist. Continuing IV antibiotics as well as diuresis. She is a DNR at this point. Current Visit: Yes (2) Aspiration pneumonitis Status: Acute Assessment and plan: Continuing on vancomycin and Zosyn day 5. She is receiving ventilatory support as well as nebs. She is status post bronchoscopy by Dr. Miguel Bravo. Current Visit: Yes (3) Acute on chronic renal failure Status: Acute Assessment and plan: She has acute on chronic renal failure which continues to worsen with a creatinine of approximately 6.8. Nephrology has been consulted and is assisting with her fluids and electrolytes. Current Visit: Yes (4) UTI (urinary tract infection) Status: Acute Assessment and plan: She has a UTI due to ESBL E. coli on Zosyn and Vanco. Plan to continue Zosyn and Vanco until Saturday morning. If cultures reveal no evidence of MRSA we will discontinue at that time. Current Visit: Yes (5) Anemia Status: Acute Assessment and plan: She does have anemia with hemoglobin that was slightly decreased yesterday and was felt to be possible to dilution however she was transfused with 1 unit of packed red blood cells. Current Visit: Yes (6) Dementia Status: Chronic Current Visit: Yes (7) Thrombocytopenia Status: Acute Assessment and plan: Patient was noted to be thrombocytopenic which is now improved to a level of 120 ,000 today. Continue to treat as above. Current Visit: Yes Hospitalist: Subjective Interval history: Chart is been reviewed and patient examined. She remains sedated on a ventilator. She is receiving enteral feedings for nutritional support. Exam - Constitutional Vitals: Period Temp Pulse Resp BP Sys/Orozco Pulse Ox Last 24 Hr 97.0 F-98.8 F 73-113 12-28 106-165/52-78 93-100 General appearance: no acute distress - Head Head exam: Present: normocephalic, atraumatic - Eye Eye exam: Present: EOMI Pupils: Present: BETHANIE - ENT ENT exam: Present: other (ET tube in place) - Neck Neck exam: Present: normal inspection - Respiratory Respiratory exam: Present: rales - Cardiovascular Cardiovascular exam: Present: regular rate and rhythm - GI/Abdominal GI/Abdominal exam: Present: normal bowel sounds, soft. Absent: tenderness, rebound - Extremities Exam Extremities exam: Present: normal inspection, other (SCDs in place). Absent: calf tenderness, edema - Neurological Exam Neurological exam: Present: other (Sedated on the vent) - Psychiatric Psychiatric exam: Absent: agitated, anxious Results - Labs CBC & BMP: 10/20/16 03:32 10/20/16 03:32 Lab Results: I have reviewed the past 24 hour labs - Diagnostic Findings Procedure: Chest x-ray: image reviewed by me Quality Measures - VTE Contraindication to Pharmacological VTE Prophylaxis: High Risk of Bleeding
--- NOTE | 2016-10-20 08:08 | Pulmonology Progress Note ---
Pulmonary - PN: Subj Interval history: This 76-year-old lady has a history of dementia and lives in a halfway. She came in after an episode sounds like aspiration. Her x-ray has shown pulmonary edema and she does have congestive heart failure. She has developed acute renal failure with creatinine up to 6.6. Renal is seeing her. She is getting bicarb. Her chest x-ray today looks wetter. ABGs are acceptable although she does have a metabolic acidosis. Certainly not ready for any weaning at this point. Her prognosis appears poor. Note that she is a DO NOT RESUSCITATE at this point. 10/20/2016 patient is on the ventilator with pulmonary edema. Worsening renal function. Her blood pressure is elevated. Prognosis is poor. I am told by the nursing staff that the family does not want her to have dialysis. Exam (Progress Note) - Constitutional Vitals: Period Temp Pulse Resp BP Sys/Orozco Pulse Ox Last 24 Hr 97.3 F-98.8 F 11-113 12-28 106-172/52-78 93-100 Exam: Patient is not responsive. Vital signs normal except blood pressure 200/80. Pupils react to light. Orotracheal tube in place. Neck supple no bruits. Chest reveals rales bilaterally. Heart normal rate rhythm no murmurs. Abdomen soft no masses. Extremities no clubbing or cyanosis she has 1+ edema. Little change from yesterday. Results - Labs CBC & BMP: 10/20/16 03:32 10/20/16 03:32 Lab Results: I have reviewed the past 24 hour labs - Diagnostic Findings Procedure: Chest x-ray: image reviewed by me (Pulmonary edema. A little worse on the left side a little bit on the right side. ET tube good position.) Assessment and Plan (1) Congestive heart failure Status: Acute Assessment and plan: Chest x-ray shows pulmonary edema. With worsening renal function difficult to diurese her. Prognosis appears poor. Need to check echo 10/20/2016 radiographically and heart failure. Echo pending Current Visit: Yes (2) Acute renal failure Status: Acute Assessment and plan: Creatinine up to 6.6. Worsening renal failure. Metabolic acidosis. Renal is addressing. 10/20/2016 creatinine up to 6.8. Would be very poor candidate for dialysis Current Visit: Yes (3) Aspiration pneumonitis Status: Acute Assessment and plan: On empiric antibiotics. X-ray looks more like pulmonary edema from congestive failure. 10/20/2016 continuing empiric antibiotics. Current Visit: Yes (4) Dementia Status: Chronic Assessment and plan: History of underlying dementia. Impossible to evaluate the patient on ventilator. Current Visit: Yes
[2016-10-20] MEDS: SODIUM BICARB INJ 150 MEQ in STERILE WATER INJ 850 ML IV SCH (08:25)
[2016-10-20] MEDS: amLODIPine 5 MG TABLET PO SCH (08:26)
[2016-10-20] MEDS: MULTIVITAMIN (CENTRUM) TABLET PO SCH (08:26)
[2016-10-20] MEDS: MORPHINE 2 MG/1 ML SYRINGE IV PRN (09:01)
--- NOTE | 2016-10-20 09:59 | Nephrology Progress Note ---
Nephrology - PN: Subj Interval history: Ms. Wakefield seen in follow-up of her renal impairment creatinine is 6.8 BUN 81, both relatively stable. She is unresponsive on a ventilator. She has essentially no edema. We will continue to support. Exam (PN)-Nephrology - Vital Signs Vital signs: Period Temp Pulse Resp BP Sys/Orozco Pulse Ox Last 24 Hr 97.3 F-98.8 F 11-113 12-28 106-201/52-80 93-100 - Lab 10/20/16 03:32 10/20/16 03:32 Most recent lab results ABG pH 7.451 (7.35-7.45) H 10/20/16 03:14 ABG pCO2 25.6 MM HG (35-48) L 10/20/16 03:14 ABG pO2 75.5 MM HG (80-95) L 10/20/16 03:14 ABG HCO3 20.1 MMOL/L (20-26) 10/20/16 03:14 ABG O2 Saturation 96.1 % (95-100) 10/20/16 03:14 Calcium 6.7 MG/DL (8.5-10.1) L 10/20/16 03:32 Phosphorus 5.4 MG/DL (2.5-4.9) H 10/18/16 03:51 Magnesium 1.9 MG/DL (1.8-2.4) 10/18/16 03:51
[2016-10-20] MEDS: PIPERACILLIN/TAZOBACTAM 3,375 MG in SODIUM CHLORIDE 0.9% 100 ML IV SCH (11:45)
[2016-10-20 20:30] LABS: ABG Base Excess -2.6 MMOL/L (-2.5-2.5); ABG HCO3 20.4 MMOL/L (20-26); ABG Oxygen Saturation 94.2 % (95-100); ABG PCO2 28.9 MM HG (35-48); ABG PH 7.467 (7.35-7.45); ABG TCO2 21.3 MMOL/L (23-27)
[2016-10-21] MEDS: INSULIN LISPRO 100 UNIT/ML SUBCUT SCH ×4 (00:25→18:43)
[2016-10-21] MEDS: PIPERACILLIN/TAZOBACTAM 3,375 MG in SODIUM CHLORIDE 0.9% 100 ML IV SCH ×2 (00:25→12:29)
[2016-10-21] MEDS: MORPHINE 2 MG/1 ML SYRINGE IV PRN ×3 (01:04→11:49)
[2016-10-21] MEDS: PANTOPRAZOLE 40 MG VIAL IV SCH (02:25)
[2016-10-21 03:53] LABS: ABG Base Excess -2.2 MMOL/L (-2.5-2.5); ABG HCO3 22.5 MMOL/L (20-26); ABG Oxygen Saturation 98.5 % (95-100); ABG PCO2 34.3 MM HG (35-48); ABG PH 7.412 (7.35-7.45); ABG TCO2 20.2 MMOL/L (23-27)
[2016-10-21] MEDS: SODIUM BICARB INJ 150 MEQ in STERILE WATER INJ 850 ML IV SCH (04:48)
[2016-10-21 04:53] LABS: Basophils % 0.2 % (0.0-0.8); Eosinophils # 0.4 10*3/uL (0.0-0.87); Eosinophils % 4.4 % (0.00-10.9); Hematocrit 23.8 VOL% (35.7-47.0); Hemoglobin 8.7 GM/DL (12.0-16.0); Immature Granulocytes % 1.2 %; Immature Granulocytes Absolute 0.11 #; Lymphocytes # 0.7 10*3/uL (1.4-4.0); Lymphocytes % 6.8 % (21.3-54.2); Mean Corpuscular HGB Conc 36.6 GM/DL (32-36); Mean Corpuscular Hemoglobin 24 PG (27-34); Mean Corpuscular Volume 64.3 FL (87-102); Monocytes # 0.7 10*3/uL (0.11-0.8); NRBC # 0.02 10*3/uL; Neutrophils # 7.7 10*3/uL (1.4-7.4); Neutrophils % 80.4 % (38.7-73.9); Platelet Count 126 T/CUMM (130-400); Red Cell Distribution Width 14.4 % (9.3-17.3); White Blood Count 9.5 T/CUMM (4-12)
[2016-10-21 05:17] LABS: Calcium 6.8 MG/DL (8.5-10.1); Osmolality,Calculated 313.3 MOS/KG (273-304); Potassium 2.6 MMOL/L (3.5-5.1)
[2016-10-21 07:38] LABS: Burr Cells 2+; Eosinophils 4 % (0-10); Hypochromasia 2+; Lymphocytes 8 % (20-55); Platelet Estimate Decreased; Segmented Neutrophils 85 % (50-85); Total Cells Counted 100
--- NOTE | 2016-10-21 07:59 | Hospitalist Progress Note ---
Assessment and Plan - Time spent with patient Time spent with patient: Less than 30 minutes (1) Respiratory failure Status: Acute Assessment and plan: Patient has acute respiratory failure secondary to aspiration as well as possible pulmonary edema secondary to congestive heart failure. She has been managed by the preservative filler machine operator. Continuing IV antibiotics as well as diuresis. She is a DNR at this point. 10/21/16: Patient has acute respiratory failure secondary to aspiration and possible pulmonary edema. Then is being managed by a preservative filler machine operator. Continuing current care and attempt in weaning. She is a DNR. Current Visit: Yes (2) Aspiration pneumonitis Status: Acute Assessment and plan: Continuing on vancomycin and Zosyn day 6. She is receiving ventilatory support as well as nebs. She is status post bronchoscopy by Dr. Miguel Bravo. Current Visit: Yes (3) Acute on chronic renal failure Status: Acute Assessment and plan: She has acute on chronic renal failure which continues to worsen with a creatinine of approximately 7.2. Nephrology has been consulted and is assisting with her fluids and electrolytes. Current Visit: Yes (4) UTI (urinary tract infection) Status: Acute Assessment and plan: She has a UTI due to ESBL E. coli on Zosyn and Vanco. Plan to continue Zosyn and Vanco until Saturday morning. If cultures reveal no evidence of MRSA we will discontinue at that time. Current Visit: Yes (5) Anemia Status: Acute Assessment and plan: She does have anemia with hemoglobin that was slightly decreased yesterday and was felt to be possible to dilution however she was transfused with 1 unit of packed red blood cells. 10/21/16: Continues to be anemic. Following H&H closely. Transfuse as needed. Current Visit: Yes (6) Dementia Status: Chronic Current Visit: Yes (7) Thrombocytopenia Status: Acute Assessment and plan: Patient was noted to be thrombocytopenic which is now improved to a level of 126 ,000 today. Continue to treat as above. Current Visit: Yes Hospitalist: Subjective Interval history: Patient remains sedated on the ventilator. She is receiving enteral feedings for nutritional support. There is been no other significant events overnight. Exam - Constitutional Vitals: Period Temp Pulse Resp BP Sys/Orozco Pulse Ox Last 24 Hr 98.3 F-99.4 F 73-104 12-26 129-201/52-80 92-100 General appearance: no acute distress - Head Head exam: Present: normocephalic - Eye Eye exam: Present: EOMI Pupils: Present: BETHANIE - ENT ENT exam: Present: other (ET tube in place) - Neck Neck exam: Present: normal inspection - Respiratory Respiratory exam: Present: rhonchi - Cardiovascular Cardiovascular exam: Present: regular rate and rhythm - GI/Abdominal GI/Abdominal exam: Present: normal bowel sounds, soft. Absent: tenderness, rebound - Extremities Exam Extremities exam: Present: other (Bilateral SCDs in place). Absent: calf tenderness, edema - Neurological Exam Neurological exam: Present: other (Sedated on the ventilator) - Skin Skin exam: Present: warm, dry. Absent: rash Results - Labs CBC & BMP: 10/21/16 04:29 10/21/16 04:29 Lab Results: I have reviewed the past 24 hour labs Quality Measures - VTE Contraindication to Pharmacological VTE Prophylaxis: High Risk of Bleeding
[2016-10-21] MEDS: PROPOFOL 1,000 MG/100 ML BOTTLE IV SCH (08:47)
[2016-10-21] MEDS: amLODIPine 5 MG TABLET PO SCH (08:48)
[2016-10-21] MEDS: MULTIVITAMIN (CENTRUM) TABLET PO SCH (08:48)
--- NOTE | 2016-10-21 08:48 | Pulmonology Progress Note ---
Pulmonary - PN: Subj Interval history: This 76-year-old lady has a history of dementia and lives in a correction. She came in after an episode sounds like aspiration. Her x-ray has shown pulmonary edema and she does have congestive heart failure. She has developed acute renal failure with creatinine up to 6.6. Renal is seeing her. She is getting bicarb. Her chest x-ray today looks wetter. ABGs are acceptable although she does have a metabolic acidosis. Certainly not ready for any weaning at this point. Her prognosis appears poor. Note that she is a DO NOT RESUSCITATE at this point. 10/20/2016 patient is on the ventilator with pulmonary edema. Worsening renal function. Her blood pressure is elevated. Prognosis is poor. I am told by the nursing staff that the family does not want her to have dialysis. 10/21/2016 patient remains on mechanical ventilation and has severe pulmonary edema. Not able to make progress on weaning as yet. Prognosis poor. Exam (Progress Note) - Constitutional Vitals: Period Temp Pulse Resp BP Sys/Orozco Pulse Ox Last 24 Hr 98.3 F-99.4 F 73-99 12-25 129-188/52-67 92-100 Exam: Patient is not responsive. Vital signs normal except blood pressure 200/80. Pupils react to light. Orotracheal tube in place. Neck supple no bruits. Chest reveals rales bilaterally. Heart normal rate rhythm no murmurs. Abdomen soft no masses. Extremities no clubbing or cyanosis she has 1+ edema. Results - Labs CBC & BMP: 10/21/16 04:29 10/21/16 04:29 Lab Results: I have reviewed the past 24 hour labs - Diagnostic Findings Procedure: Chest x-ray: image reviewed by me (Continues to have pulmonary edema. ) Assessment and Plan (1) Congestive heart failure Status: Acute Assessment and plan: Chest x-ray shows pulmonary edema. With worsening renal function difficult to diurese her. Prognosis appears poor. Need to check echo 10/20/2016 radiographically and heart failure. Echo pending 10/21/2016 pulmonary edema consistent with heart failure Current Visit: Yes (2) Acute renal failure Status: Acute Assessment and plan: Creatinine up to 6.6. Worsening renal failure. Metabolic acidosis. Renal is addressing. 10/20/2016 creatinine up to 6.8. Would be very poor candidate for dialysis 10/21/2016 creatinine up to 7.2. Current Visit: Yes (3) Aspiration pneumonitis Status: Acute Assessment and plan: On empiric antibiotics. X-ray looks more like pulmonary edema from congestive failure. 10/20/2016 continuing empiric antibiotics. 10/21/2016 on empiric antibiotics. Only positive culture is E. coli from her urine. Current Visit: Yes (4) Dementia Status: Chronic Assessment and plan: History of underlying dementia. Impossible to evaluate the patient on ventilator. Current Visit: Yes
--- NOTE | 2016-10-21 09:10 | XRay Report ---
Exam: XR chest 1V portable Date: 10/21/2016 4:00 AM Indication: Follow-up ventilator respiratory failure Comparison: 10/20/2016 Technical: AP Findings: Endotracheal tube at the mid clavicle. Nasogastric tube is in place. External cardiac leads are present. Low volume effusions and shunt vascularity and alveolar edema persist. No pneumothorax. Heart is mildly prominent. Impression: 1. Stable appearance of life support tubing 2. Persistent alveolar edema and CHF respiratory failure. Component of ARDS cannot be totally excluded. PROCEDURE INTERPRETED AT [facility] DEPARTMENT OF RADIOLOGY Final Report Signed by: Dr. Adrian Jones
--- NOTE | 2016-10-21 10:17 | Nephrology Progress Note ---
Nephrology - PN: Subj Interval history: Ms. Carrillover seen in follow-up of her acute superimposed on chronic renal failure in the midst of critical illness with pulmonary edema and ventilator course. Her creatinine is up to 7.2 and her metabolic acidosis has been corrected. Her potassium is 2.6. We are going to try to help her with her pulmonary edema with intravenous Lasix and see if she will respond to that she is making urine. He will require potassium supplementation at least briefly as well. [place] is poor. Exam (PN)-Nephrology - Vital Signs Vital signs: Period Temp Pulse Resp BP Sys/Orozco Pulse Ox Last 24 Hr 98.3 F-99.4 F 73-94 12- 129-188/52-67 92-100 - Lab 10/21/16 04:29 10/21/16 04:29 Most recent lab results ABG pH 7.412 (7.35-7.45) 10/21/16 03:20 ABG pCO2 34.3 MM HG (35-48) L 10/21/16 03:20 ABG pO2 109.0 MM HG (80-95) H 10/21/16 03:20 ABG HCO3 22.5 MMOL/L (20-26) 10/21/16 03:20 ABG O2 Saturation 98.5 % (95-100) 10/21/16 03:20 Calcium 6.8 MG/DL (8.5-10.1) L 10/21/16 04:29 Phosphorus 5.4 MG/DL (2.5-4.9) H 10/18/16 03:51 Magnesium 2.0 MG/DL (1.8-2.4) 10/21/16 04:29
[2016-10-21] MEDS ORDERED: FUROSEMIDE IV ONE (11:00)
[2016-10-21] MEDS ORDERED: SODIUM CHLORIDE 0.9% IV ONE (11:00)
[2016-10-21] MEDS: POTASSIUM CHLORIDE 20 MEQ/15 ML UDCUP PER TUBE SCH ×2 (11:04→20:55)
[2016-10-21] MEDS: ZINC OXIDE 16% PASTE 57 GM TUBE TOP PRN (11:05)
[2016-10-21] MEDS ORDERED: ACETAMINOPHEN 325 MG TABLET PO PRN (20:21)
[2016-10-22] MEDS: INSULIN LISPRO 100 UNIT/ML SUBCUT SCH ×4 (01:21→17:10)
[2016-10-22] MEDS: PIPERACILLIN/TAZOBACTAM 3,375 MG in SODIUM CHLORIDE 0.9% 100 ML IV SCH ×2 (01:22→11:42)
[2016-10-22] MEDS: PANTOPRAZOLE 40 MG VIAL IV SCH (01:22)
[2016-10-22] MEDS: PROPOFOL 1,000 MG/100 ML BOTTLE IV SCH ×3 (03:30→19:22)
[2016-10-22 03:53] LABS: ABG Base Excess -3.4 MMOL/L (-2.5-2.5); ABG HCO3 21.5 MMOL/L (20-26); ABG Oxygen Saturation 89.6 % (95-100); ABG PCO2 39.1 MM HG (35-48); ABG PH 7.354 (7.35-7.45); ABG PO2 61.5 MM HG (80-95); ABG TCO2 20.3 MMOL/L (23-27)
[2016-10-22 05:33] LABS: Calcium 7.2 MG/DL (8.5-10.1); Magnesium 2.2 MG/DL (1.8-2.4); Osmolality,Calculated 318.3 MOS/KG (273-304); Phosphorous 5.6 MG/DL (2.5-4.9); Potassium 2.9 MMOL/L (3.5-5.1); Prealbumin 3.7 MG/DL (20-40)
[2016-10-22] MEDS: MORPHINE 2 MG/1 ML SYRINGE IV PRN ×2 (06:25→14:29)
--- NOTE | 2016-10-22 07:48 | XRay Report ---
Portable chest Date: 10/22/2016 Clinical history: Ventilator, pulmonary edema, aspiration pneumonia Comparison: 10/21/2016 Technique: Portable AP sitting chest Findings: The heart is normal in size with stable supportive devices. Persistent diffuse parenchymal findings which appear progressive in the left mid to lower lung zone. More stable findings in the right lung with small pleural effusions. Stable mediastinum and osseous structures. Impression: Progressive infiltration/edema in the left mid to lower lung zone with more stable findings in the right lung. Small pleural effusions. Supportive devices remain in satisfactory position. PROCEDURE INTERPRETED AT [facility] DEPARTMENT OF RADIOLOGY Final Report Signed by: Dr. Julia Corley
[2016-10-22] MEDS: amLODIPine 5 MG TABLET PO SCH (08:04)
[2016-10-22] MEDS: MULTIVITAMIN (CENTRUM) TABLET PO SCH (08:04)
[2016-10-22] MEDS: POTASSIUM CHLORIDE 20 MEQ/15 ML UDCUP PER TUBE SCH ×2 (08:04→20:15)
--- NOTE | 2016-10-22 08:41 | Pulmonology Progress Note ---
Pulmonary - PN: Subj Interval history: Patient is a 76-year-old black lady with dementia and she is in the snf. She came in with what was felt to be aspiration pneumonia. She did develop bilateral infiltrates. Over the weekend she has developed worsening renal failure and her creatinine is up to 7.8. Her chest x-ray looks like pulmonary edema. She does have some relative hypoxemia. She is unable to wean at all. The family is trying to decide about dialysis. She is a DNR now. Exam (Progress Note) - Constitutional Vitals: Period Temp Pulse Resp BP Sys/Orozco Pulse Ox Last 24 Hr 97.5 F-100.9 F 90-120 12-27 104-197/43-75 92-100 Exam: General appearance: normal weight, no acute distress (The patient is sedated on the ventilator. Her heart rate is better. ) - Head Head exam: Present: normal inspection, normocephalic - Eye Eye exam: Present: EOMI. Absent: scleral icterus Pupils: Present: BETHANIE - ENT ENT exam: Present: other (ET tube is in good position.) - Neck Neck exam: Present: normal inspection. Absent: lymphadenopathy, thyromegaly - Respiratory Respiratory exam: Present: She has coarse breath sounds bilaterally with some rhonchi present. - Cardiovascular Cardiovascular exam: Present: regular rate and rhythm, her heart rate is under better control. Absent: gallop, systolic murmur - GI/Abdominal GI/Abdominal exam: Present: normal bowel sounds, soft. Absent: distended, organomegaly, tenderness - Extremities Exam Extremities exam: Present: She has no leg pain or tenderness at the present time. - Neurological Exam Neurological exam: Present: other (She is not really responding and does not follow commands) - Psychiatric Psychiatric exam: Absent: anxious - Skin Skin exam: Present: warm, dry Results - Labs CBC & BMP: 10/21/16 04:29 10/22/16 04:00 Labs: Her PO2 61 with a PCO2 of 39 pH of 7.35 - Diagnostic Findings Procedure: Chest x-ray: image reviewed by me, report reviewed by me (Chest x- ray still shows extensive infiltrates consistent with pulmonary edema.) Assessment and Plan (1) Respiratory failure Status: Acute Assessment and plan: The patient has been on the ventilator since last week and has extensive infiltrates bilaterally. She still has considerable hypoxemia. Nothing is growing on washings. She looks like she has at least some pulmonary edema. She is developing worsening renal failure. Her prognosis is very poor. Current Visit: Yes (2) Alzheimer's dementia Status: Acute Assessment and plan: The patient is in a snf with significant dementia. Current Visit: Yes (3) Acute on chronic renal failure Status: Acute Assessment and plan: The patient's creatinine is up to 7.8 now. She had a little better urine but after Lasix. Current Visit: Yes (4) Aspiration pneumonia Status: Acute Assessment and plan: Patient looks like she has bilateral basilar pneumonia. She still has bilateral infiltrates although she is not having much fever. Her bronchial washings have been negative. Most of her x-ray changes are probably pulmonary edema. Current Visit: Yes (5) UTI (urinary tract infection) Status: Acute Assessment and plan: Patient does have pyuria. Her urine grew E. coli ESBL. Current Visit: Yes (6) Vomiting Status: Acute Assessment and plan: Patient presented with vomiting but is stable at present. She could be dehydrated somewhat. Her hemodynamics are little better but she really did not respond that well to fluids. She has developed acute renal failure. Current Visit: Yes
--- NOTE | 2016-10-22 14:06 | Nephrology Progress Note ---
Nephrology - PN: Subj Interval history: Patient remains intubated and sedate. Physical exam general the patient is chronically ill-appearing, heart is regular rate and rhythm, she has trace pretibial edema, lungs reveal rhonchi in upper airway noises bilaterally abdomen is soft with positive bowel sounds Assessment/plan 1. Acute renal failure-patient's creatinine is increased to 7.8 mg/dL, her urine output yesterday was around 900 cc over 24 hours, there is no acute indication for dialysis at this time 2. Aspiration pneumonia continue antibiotics 3. Respiratory failure 4. Dementia 5. Hypertension continue present antihypertensives 6. Metabolic acidosis this corrected 7. Hypokalemia we will continue to supplement her potassium Exam (PN)-Nephrology - Vital Signs Vital signs: Period Temp Pulse Resp BP Sys/Orozco Pulse Ox Last 24 Hr 97.5 F-100.9 F 94-120 02-20 104-197/46-75 92-100 - Lab 10/21/16 04:29 10/22/16 04:00 Most recent lab results ABG pH 7.354 (7.35-7.45) 10/22/16 03:35 ABG pCO2 39.1 MM HG (35-48) 10/22/16 03:35 ABG pO2 61.5 MM HG (80-95) L 10/22/16 03:35 ABG HCO3 21.5 MMOL/L (20-26) 10/22/16 03:35 ABG O2 Saturation 89.6 % (95-100) L 10/22/16 03:35 Calcium 7.2 MG/DL (8.5-10.1) L 10/22/16 04:00 Phosphorus 5.6 MG/DL (2.5-4.9) H 10/22/16 04:00 Magnesium 2.2 MG/DL (1.8-2.4) 10/22/16 04:00 Assessment and Plan (1) Acute renal failure Status: Acute Assessment and plan: This patient's creatinine has been increasing since she was here she presented with a creatinine of around 3 mg/dL. I suspect her acute renal failure is related to her acute illness and a probable acute tubular necrosis type of injury. At this point I am going to try and decrease her fluids as I feel she has been adequately volume resuscitated. We will continue to monitor for improvement. Current Visit: Yes (2) Hypertension Status: Acute Assessment and plan: Continue present medical regimen Current Visit: Yes (3) Anemia Status: Acute Current Visit: Yes (4) Dementia Status: Chronic Current Visit: Yes (5) Aspiration pneumonitis Status: Acute Assessment and plan: Presently patient is getting Zosyn and vancomycin, in light of her renal failure it may be good if we could switch her vancomycin out for clindamycin perhaps. Current Visit: Yes (6) Respiratory failure Status: Acute Current Visit: Yes (7) Hypernatremia Status: Acute Current Visit: Yes (8) UTI (urinary tract infection) Status: Acute Current Visit: Yes (9) Vomiting Status: Acute Current Visit: Yes (10) Metabolic acidosis Status: Acute Assessment and plan: I will add some sodium bicarbonate to her IV fluids. Current Visit: Yes
--- NOTE | 2016-10-22 16:05 | Hospitalist Progress Note ---
Assessment and Plan (1) Aspiration pneumonitis Status: Acute Assessment and plan: On vancomycin and zosyn Current Visit: Yes (2) Respiratory failure Status: Acute Assessment and plan: Secondary to aspiration and possibly pulmonary edema Pulmonary assisting with vent management Current Visit: Yes (3) Acute on chronic renal failure Status: Acute Assessment and plan: Continues to worsen Nephrology assisting Current Visit: Yes (4) UTI (urinary tract infection) Status: Acute Assessment and plan: ESBL E.coli Current Visit: Yes (5) Anemia Status: Acute Assessment and plan: Monitor Current Visit: Yes (6) Thrombocytopenia Status: Acute Current Visit: Yes Hospitalist: Subjective Interval history: No acute events overnight. Patient intubated and sedated. Daughter is at her bedside. Exam - Constitutional Vitals: Period Temp Pulse Resp BP Sys/Orozco Pulse Ox Last 24 Hr 97.5 F-100.9 F 94-120 12-28 104-197/48-84 92-100 General appearance: over weight - Head Head exam: Present: normocephalic, atraumatic - Eye Eye exam: Present: EOMI Pupils: Present: BETHANIE - ENT ENT exam: Present: normal exam - Neck Neck exam: Present: normal inspection - Respiratory Respiratory exam: Present: clear to auscultation bilaterally. Absent: rhonchi, wheezes - Cardiovascular Cardiovascular exam: Present: regular rate and rhythm - GI/Abdominal GI/Abdominal exam: Present: normal bowel sounds, soft. Absent: tenderness, rebound - Extremities Exam Extremities exam: Present: normal inspection - Back Exam Back exam: Present: normal inspection - Neurological Exam Neurological exam: Present: other (sedated) - Psychiatric Psychiatric exam: Absent: agitated, anxious - Skin Skin exam: Present: warm, intact Results - Labs CBC & BMP: 10/21/16 04:29 10/22/16 04:00 Quality Measures - VTE Contraindication to Pharmacological VTE Prophylaxis: High Risk of Bleeding
[2016-10-22] MEDS: INSULIN NPH 100 UNIT/ML SUBCUT SCH (20:15)
[2016-10-23] MEDS: INSULIN LISPRO 100 UNIT/ML SUBCUT SCH ×3 (00:36→12:17)
[2016-10-23] MEDS: PIPERACILLIN/TAZOBACTAM 3,375 MG in SODIUM CHLORIDE 0.9% 100 ML IV SCH ×2 (00:36→12:17)
[2016-10-23] MEDS: PANTOPRAZOLE 40 MG VIAL IV SCH (01:32)
[2016-10-23 05:03] LABS: Basophils % 0.1 % (0.0-0.8); Eosinophils # 0.6 10*3/uL (0.0-0.87); Eosinophils % 4.6 % (0.00-10.9); Hematocrit 22.4 VOL% (35.7-47.0); Hemoglobin 8.3 GM/DL (12.0-16.0); Immature Granulocytes % 1.6 %; Immature Granulocytes Absolute 0.21 #; Lymphocytes # 0.9 10*3/uL (1.4-4.0); Lymphocytes % 6.9 % (21.3-54.2); Mean Corpuscular HGB Conc 37.1 GM/DL (32-36); Mean Corpuscular Hemoglobin 24 PG (27-34); Mean Corpuscular Volume 63.6 FL (87-102); Monocytes # 0.9 10*3/uL (0.11-0.8); Monocytes % 6.4 % (1.7-12.7); NRBC # 0.03 10*3/uL; Neutrophils # 10.8 10*3/uL (1.4-7.4); Neutrophils % 80.4 % (38.7-73.9); Platelet Count 149 T/CUMM (130-400); Red Blood Count 3.52 MC/CUMM (3.8-5.5); Red Cell Distribution Width 14.4 % (9.3-17.3); White Blood Count 13.4 T/CUMM (4-12)
[2016-10-23 05:27] LABS: Eosinophils 9 % (0-10); Hypochromasia 1+; Lymphocytes 9 % (20-55); Segmented Neutrophils 76 % (50-85); Total Cells Counted 100
[2016-10-23 05:28] LABS: Microcytosis 1+; Ovalocytes Slight; Target Cells Slight
[2016-10-23 05:34] LABS: Calcium 7.3 MG/DL (8.5-10.1); Magnesium 2.4 MG/DL (1.8-2.4); Potassium 2.9 MMOL/L (3.5-5.1)
--- NOTE | 2016-10-23 06:41 | Nephrology Progress Note ---
Nephrology - PN: Subj Interval history: Patient remains intubated and sedate, however she does seem to be a little bit more awake and alert this morning she opens her eyes and seems to fixate. Physical exam general the patient is chronically ill-appearing, heart is regular rate and rhythm, she has diffuse swelling, lungs are clear to auscultation anteriorly, abdomen is soft with positive bowel sounds Assessment/plan 1. Acute renal failure-this patient's creatinine is increased to 8 mg/dL from 7.8 mg/dL however her urine output has been increasing in the past 12-16 hours making almost 100 cc an hour at times. I think she may be starting to recover some of her kidney function. 2. Metabolic acidosis-patient's bicarb is around 21 3. Hypertension 4. Respiratory failure 5. Cardiac arrest 6. Hypokalemia-I am going to increase her potassium replacement. Exam (PN)-Nephrology - Vital Signs Vital signs: Period Temp Pulse Resp BP Sys/Orozco Pulse Ox Last 24 Hr 97.5 F-100 F 94-115 12-30 108-189/48-84 92-100 - Lab 10/23/16 04:16 10/23/16 04:16 Most recent lab results ABG pH 7.354 (7.35-7.45) 10/22/16 03:35 ABG pCO2 39.1 MM HG (35-48) 10/22/16 03:35 ABG pO2 61.5 MM HG (80-95) L 10/22/16 03:35 ABG HCO3 21.5 MMOL/L (20-26) 10/22/16 03:35 ABG O2 Saturation 89.6 % (95-100) L 10/22/16 03:35 Calcium 7.3 MG/DL (8.5-10.1) L 10/23/16 04:16 Phosphorus 5.6 MG/DL (2.5-4.9) H 10/22/16 04:00 Magnesium 2.4 MG/DL (1.8-2.4) 10/23/16 04:16 Assessment and Plan (1) Acute renal failure Status: Acute Assessment and plan: This patient's creatinine has been increasing since she was here she presented with a creatinine of around 3 mg/dL. I suspect her acute renal failure is related to her acute illness and a probable acute tubular necrosis type of injury. At this point I am going to try and decrease her fluids as I feel she has been adequately volume resuscitated. We will continue to monitor for improvement. Current Visit: Yes (2) Hypertension Status: Acute Assessment and plan: Continue present medical regimen Current Visit: Yes (3) Anemia Status: Acute Current Visit: Yes (4) Dementia Status: Chronic Current Visit: Yes (5) Aspiration pneumonitis Status: Acute Assessment and plan: Presently patient is getting Zosyn and vancomycin, in light of her renal failure it may be good if we could switch her vancomycin out for clindamycin perhaps. Current Visit: Yes (6) Respiratory failure Status: Acute Current Visit: Yes (7) Hypernatremia Status: Acute Current Visit: Yes (8) UTI (urinary tract infection) Status: Acute Current Visit: Yes (9) Vomiting Status: Acute Current Visit: Yes (10) Metabolic acidosis Status: Acute Assessment and plan: I will add some sodium bicarbonate to her IV fluids. Current Visit: Yes
--- NOTE | 2016-10-23 07:42 | Pulmonology Progress Note ---
Pulmonary - PN: Subj Interval history: Patient is a 76-year-old black lady with dementia and she is in the [facility]. She came in with what was felt to be aspiration pneumonia. She did develop bilateral infiltrates. Over the weekend she has developed worsening renal failure but now her urine output seems to be improving. She has bilateral infiltrates but did do CPAP yesterday. Her oxygenation seems to be relatively stable. Her creatinine is up to 8.0 but hopefully this is peaking. Her vital signs seem to be relatively stable at present. Exam (Progress Note) - Constitutional Vitals: Period Temp Pulse Resp BP Sys/Orozco Pulse Ox Last 24 Hr 97.5 F-100 F 94-115 12-30 108-189/48-84 92-100 Exam: General appearance: normal weight, no acute distress (The patient is a little more awake and does seem relatively comfortable.) - Head Head exam: Present: normal inspection, normocephalic - Eye Eye exam: Present: EOMI. Absent: scleral icterus Pupils: Present: BETHANIE - ENT ENT exam: Present: other (ET tube is in good position.) - Neck Neck exam: Present: normal inspection. Absent: lymphadenopathy, thyromegaly - Respiratory Respiratory exam: Present: She has coarse breath sounds bilaterally with fairly good air movement and some slight crackles present. - Cardiovascular Cardiovascular exam: Present: regular rate and rhythm, her heart rate is under better control. Absent: gallop, systolic murmur - GI/Abdominal GI/Abdominal exam: Present: normal bowel sounds, soft. Absent: distended, organomegaly, tenderness - Extremities Exam Extremities exam: Present: She has no leg pain or tenderness at the present time. - Neurological Exam Neurological exam: Present: other (She is a little more awake and comfortable.) - Psychiatric Psychiatric exam: Absent: anxious - Skin Skin exam: Present: warm, dry Results - Labs CBC & BMP: 10/23/16 04:16 10/23/16 04:16 Assessment and Plan (1) Respiratory failure Status: Acute Assessment and plan: The patient has been on the ventilator since last week and has extensive infiltrates bilaterally. Her oxygenation seems to be a little more stable and she did do CPAP yesterday. Her urine output is starting to improve. Current Visit: Yes (2) Alzheimer's dementia Status: Acute Assessment and plan: The patient is in a [facility] with significant dementia. Current Visit: Yes (3) Acute on chronic renal failure Status: Acute Assessment and plan: The patient's creatinine is up to 8.0 now. She had a little better urine but after Lasix. Her urine output does seem to be a little better now. Current Visit: Yes (4) Aspiration pneumonia Status: Acute Assessment and plan: Patient has been treated for pneumonia and clinically she is doing a little better. Will continue with antibiotics and weaning. Current Visit: Yes (5) UTI (urinary tract infection) Status: Acute Assessment and plan: Patient does have pyuria. Her urine grew E. coli ESBL. Current Visit: Yes (6) Vomiting Status: Acute Assessment and plan: Patient presented with vomiting but is stable at present. Her volume status is better and she is well-hydrated now. Her lungs look a little overloaded but hopefully they are improving. Her urine output is improving. Current Visit: Yes
[2016-10-23] MEDS: POTASSIUM CHLORIDE 20 MEQ/15 ML UDCUP PER TUBE SCH ×3 (08:12→20:13)
[2016-10-23] MEDS: amLODIPine 5 MG TABLET PO SCH (08:13)
[2016-10-23] MEDS: MULTIVITAMIN (CENTRUM) TABLET PO SCH (08:13)
[2016-10-23] MEDS: INSULIN NPH 100 UNIT/ML SUBCUT SCH (08:13)
[2016-10-23] MEDS: PROPOFOL 1,000 MG/100 ML BOTTLE IV SCH (08:13)
[2016-10-23] MEDS: MORPHINE 2 MG/1 ML SYRINGE IV PRN ×3 (08:17→20:14)
--- NOTE | 2016-10-23 14:27 | Hospitalist Progress Note ---
Assessment and Plan (1) Aspiration pneumonitis Status: Acute Assessment and plan: On vancomycin and zosyn Current Visit: Yes (2) Respiratory failure Status: Acute Assessment and plan: Secondary to aspiration and possibly pulmonary edema Pulmonary assisting with vent management Current Visit: Yes (3) Acute on chronic renal failure Status: Acute Assessment and plan: Continues to worsen Nephrology assisting Current Visit: Yes (4) UTI (urinary tract infection) Status: Acute Assessment and plan: ESBL E.coli Current Visit: Yes (5) Anemia Status: Acute Assessment and plan: Monitor Current Visit: Yes (6) Thrombocytopenia Status: Acute Current Visit: Yes Hospitalist: Subjective Interval history: No acute events overnight. Long discussion with two of patient's daughters, they express that she would not have wanted to be on a ventilator in the first place and are interested in comfort care measures only. I discussed the patient' s current situation, that she is currently stable. Her urine output seems to be improving and her creatinine is only up a small amount today. They are very adamant that the patient would not have wanted any heroic measures and would not have wanted to suffer in this way. I also spoke with a son over the phone at this time. The family has decided to withdraw care and pursue comfort measures only. They would like to wait until a couple other family members arrive later today to initiate this process. Exam - Constitutional Vitals: Period Temp Pulse Resp BP Sys/Orozco Pulse Ox Last 24 Hr 97.9 F-100 F 97-119 15-39 108-212/50-84 92-100 General appearance: normal weight - Head Head exam: Present: normocephalic, atraumatic - Eye Eye exam: Present: EOMI Pupils: Present: BETHANIE - ENT ENT exam: Present: normal exam - Neck Neck exam: Present: normal inspection - Respiratory Respiratory exam: Present: clear to auscultation bilaterally. Absent: rhonchi, wheezes - Cardiovascular Cardiovascular exam: Present: regular rate and rhythm - GI/Abdominal GI/Abdominal exam: Present: normal bowel sounds, soft. Absent: tenderness - Extremities Exam Extremities exam: Present: normal inspection - Back Exam Back exam: Present: normal inspection - Neurological Exam Neurological exam: Present: alert, oriented X3 - Psychiatric Psychiatric exam: Present: normal affect, normal mood - Skin Skin exam: Present: warm, intact Results - Labs CBC & BMP: 10/23/16 04:16 10/23/16 04:16 Quality Measures - VTE Contraindication to Pharmacological VTE Prophylaxis: High Risk of Bleeding
--- NOTE | 2016-10-23 15:10 | Physician Query Form ---
CLICK EDIT DOCUMENT TO SELECT QUERY ANSWER --> OK --> SIGN Danya Kaur RN Clinical [employer] W) [phone] (f) [phone] [email or web address] PROVIDERS: Make your selection(s) from the choices in EACH section by typing an "x" and enter comments in the comment section. Please use your independent medical judgment in providing your response. This request does not imply that any particular answer is desired or expected. CLINICAL INDICATORS: (Providers should not edit this section) Based on documentation of " acute CHF. Her x-ray has shown pulmonary edema and she does have congestive heart failure". [id number]. No Echo available at this time. Pt. treated with IV Lasix. Please provide further specificity regarding CHF. TYPE: ( ) Systolic (HFrEF - heart failure with reduced systolic function/EF) ( ) Diastolic (HFpEF - heart failure with preserved systolic function/EF) ( ) Combined Systolic/Diastolic ( ) Other, please specify: (x ) Clinically unable to determine ( ) The patient does not have CHF COMMENTS: PLEASE ALSO DOCUMENT RESPONSE IN PROGRESS NOTES AND/OR DISCHARGE SUMMARY Use of terms such as suspected, likely, or probable (associated with a specific diagnosis that is being evaluated, monitored, or treated as if it exists) are acceptable and can be restated in the discharge summary if not ruled out. MTDD
--- NOTE | 2016-10-23 15:24 | Physician Query Form ---
CLICK EDIT DOCUMENT TO SELECT QUERY ANSWER --> OK --> SIGN Danya Kaur RN Clinical Supervisor [employer] W) [phone] (f) [phone] [email or web address] PROVIDERS: Make your selection(s) from the choices in EACH section by typing an "x" and enter comments in the comment section. Please use your independent medical judgment in providing your response. This request does not imply that any particular answer is desired or expected. CLINICAL INDICATORS: (Providers should not edit this section) Based on documentation of "acute renal failure. I suspect her acute renal failure is related to her acute illness and a probable acute tubular necrosis type of injury". Creatinine on admission of 3.60 and increased to 8.00 with a GFR of 5. Pt. treated with IV fluids of Normal Saline. Diagnosis: ATN Please clarify the following: ( x) The above diagnosis was monitored, evaluated, and/or treated and is a confirmed diagnosis ( ) The above diagnosis was ruled out ( ) Other, please specify: ( ) Clinically unable to determine COMMENTS: PLEASE ALSO DOCUMENT RESPONSE IN PROGRESS NOTES AND/OR DISCHARGE SUMMARY Use of terms such as suspected, likely, or probable (associated with a specific diagnosis that is being evaluated, monitored, or treated as if it exists) are acceptable and can be restated in the discharge summary if not ruled out. MTDD
[2016-10-23] MEDS ORDERED: LORazepam 2 MG/1 ML VIAL IV PRN ×3 (16:10→18:47)
[2016-10-23] MEDS ORDERED: MORPHINE 2 MG/1 ML SYRINGE IV PRN (16:10)
[2016-10-23] MEDS ORDERED: fentaNYL 50 MCG/HR PATCH TRANSDERM SCH (21:00)
[2016-10-23 23:54] VITALS: BP 133/59
--- NOTE | 2016-10-24 05:31 | Discharge Summary ---
Hospital Course - Hospital Course Hospital Course: Patient was a 76-year-old group home resident with a history of dementia hypertension and diabetes who presented to the ER with respiratory distress. Patient had been vomiting all day at the group home. Family was told that the mother was taken to the ER for respiratory distress and fever. Most likely she had aspirated.. Patient was intubated in the emergency room she was received IV resuscitation. Patient was initially full code per family. Patient spent several days on the ventilator from 10/16/2016 10/23/2016. On 2016 family opted to withdraw care patient was extubated and comfort measures were instituted. Patient was subsequently transferred upstairs and allowed to have a natural with her family by her side. Patient succumbed to her illness at 89 on October 24, 2016. Discharge Plan - Discharge Data Disposition: Condition at Discharge: - Discharge Medications No Action cloNIDine HCl [Clonidine HCl] 0.2 mg PO TID Potassium Chloride [Klor-Con M20] 20 meq PO DAILY Multivitamin [Chewable-Damian] 1 capsule PO DAILY Lisinopril [Prinivil] 20 mg PO DAILY Insulin Regular [HumuLIN R] See Protocol SUBCUT BID Insulin Glargine [Lantus] 38 unit SUBCUT DAILY Ferrous Sulfate Liquid [Feosol Liquid] 220 mg PO TID Citalopram Hydrobromide [Celexa] 20 mg PO DAILY Aspirin Chew Tab [Aspirin Chew Tab] 81 mg PO DAILY metFORMIN [Glucophage] 500 mg PO BID Meloxicam [Mobic] 7.5 mg PO DAILY Galantamine HBr [Galantamine Soln] 12 mg PO BID - Follow Up or Referral - Forms/Instructions Exam - Constitutional Vitals: Period Temp Pulse Resp BP Sys/Orozco Pulse Ox Last 24 Hr 96.5 F-100.6 F 97-119 1-95 126-212/50-84 86-97 Discharge Results Procedures and tests throughout hospitalization: Pending Orders 10/16/16 01:35 Occult Blood, Stool Routine Labs on day of discharge: Labs from last 24 hours 10/23/16 10/23/16 10/23/16 11:36 04:16 04:16 Total Counted 100 Segmented Neutrophils 76 Lymphocytes 9 L Monocytes 6 Eosinophils 9 Hypochromasia 1+ Microcytosis 1+ Target Cells Slight Ovalocytes Slight Morphology Comment Sodium 143 Potassium 2.9 L Chloride 106 Carbon Dioxide 21 Anion Gap 18.9 H BUN 92 H Creatinine 8.00 H GFR Calculation 5 BUN/Creatinine Ratio 11.00 Glucose 228 H POC Glucose 276 H Calculated Osmolality 319.0 H Calcium 7.3 L Magnesium 2.4 DS: Provider Date of admission: 10/15/16 23:51 Primary care physician: . No PCP Attending physician on admission: Everardo Matias MD Consults: 10/16/16 01:32 Consult to Physician [CONS] Routine Comment: aspiration pnemonia; intubated Consulting Provider: Néstor Bravo 10/16/16 01:50 Consult to Dietitian [CONS] Routine Reason for Dietitian: Dietary Consult 10/16/16 02:38 Consult to Pharmacy [CONS] Routine Reason for Pharmacy Consult: Dose/Manage Vancomycin 10/17/16 09:47 Consult to Dietitian [CONS] Routine Reason for Dietitian: TF-Initiate/Manage Consult Comment: plz address high sodium with free water 10/18/16 11:47 Consult to Physician [CONS] Routine Comment: Consulting Provider: Consult to Specialist Group: Nephrology When should Consulting Provider be notified: Now 10/18/16 14:23 Consult to Dietitian [CONS] Routine Reason for Dietitian: TF-Initiate/Manage Consult Comment: adjust tube feeds as you see fit using a 2 millie/cc formula 10/19/16 08:20 Consult to Physical Therapy [CONS] Routine Reason for Physical Therapy: Evaluate and Treat Discharging clinician: Malick Early MD
--- NOTE | 2016-10-30 12:11 | Physician Query Form ---
CLICK EDIT DOCUMENT TO SELECT QUERY ANSWER --> OK --> SIGN Danya Kaur RN Clinical District Manager [employer] W) [phone] (f) [phone] [email or web address] PROVIDERS: Make your selection(s) from the choices in EACH section by typing an "x" and enter comments in the comment section. Please use your independent medical judgment in providing your response. This request does not imply that any particular answer is desired or expected. CLINICAL INDICATORS: (Providers should not edit this section) Pt. admitted with aspiration pneumonia and respiratory failure. Pulse of 140 and respirations of 31 on admission. WBC of 5.2 on admission and increased to 13.4. Pt. treated with IV Zosyn and Vancomycin. Please clarify which, if any, of the following is the etiology of the above symptoms and treatment rendered: (x ) Sepsis due to a localized infection, please specify infection:pneumonia ( ) Severe Sepsis (sepsis with acute organ failure) - Please specify type acute organ failure: ( ) SIRS of noninfectious origin ( ) Localized infection only, without systemic illness, please specify infection : ( ) Bacteremia (abnormal lab finding only, does not indicate systemic illness) ( ) Other condition, please specify: ( ) Clinically unable to determine Criteria for Sepsis (SIRS due to an infection) should be based on 2 or more of the following being present: Temperature > 101F or < 96.8F WBC > 12,000 or < 4,000, or > 10% bands Tachycardia HR > 90 beats/minute Tachypnea RR > 20 breaths/minute or PaCO2 > 32mmHg Lactate level > 2.0 mmol/L (>4 is equivalent to severe sepsis) Altered Mental Status Mottling of skin or prolonged capillary refill Non-diabetic hyperglycemia (blood sugar >120 mg/dl) Other evidence of acute organ failure associated with sepsis ( severe sepsis) COMMENTS: PLEASE ALSO DOCUMENT RESPONSE IN PROGRESS NOTES AND/OR DISCHARGE SUMMARY Use of terms such as suspected, likely, or probable (associated with a specific diagnosis that is being evaluated, monitored, or treated as if it exists) are acceptable and can be restated in the discharge summary if not ruled out. MTDD
== END 2016-10-24 02:08 | disposition expired | DRG 870 ==
LOC: EDUNIT# → EDBD → N.ED 20:50 → SUATTDRO 23:51 → N.EDINP 10-16 00:08 → N.CC 10-16 00:18 → SUATTDRO 10-16 01:22 → N.CC 10-16 01:23 → N.4E 10-23 21:46
PROVIDERS: ADMIT Family Medicine; ATTEND Internal Medicine